=== PATIENT | male | born 1945 | race Caucasian/White ===

== ENCOUNTER 2018-05-05 13:30 | Outpatient (CLI) | payer MEDICARE, OTHER, SELFPAY | END 2018-05-05 13:31 | PROVIDERS: PCP Nurse Practitioner Family; Visit Provider Student in an Organized Health Care Education/Training Program | DX: Z47.1 Aftercare following joint replacement surgery (principal); Z96.641 Presence of right artificial hip joint; M16.12 Unilateral primary osteoarthritis, left hip | CPT/HCPCS: 99213 ==

== ENCOUNTER 2018-05-23 15:29 | Outpatient (REF) | payer MEDICARE, OTHER, SELFPAY ==
--- NOTE | 2018-05-23 15:00 | SKI_PTH ---
PATIENT: John Parson LOC: [facility] U#:[id number] AGE/SX: 72/M ROOM: RE05/23/[address]: Pattie June : 1945 BED: DIS: 05/23/2018 SPEC #: [id number] RECD: 05/26/18 12:31 STATUS: SOSA REEmanuel #: [id number] LARY: 05/23/18 15:[address]: Pattie June DEPT: Surgical Specimen RECD BY: Katelyn Ball ENTERED: 05/26/18 12:32 SP TYPE: DANETTE FAIR DR: Kimberly Ayala Tissues: 1 - SKIN BIOPSY(SHAVE/PUNCH) Procedures: SKIN LEVEL 4 Comments: [id number]
== END 2018-05-23 15:49 ==
LOC: NCHCN 15:29
PROVIDERS: PCP Nurse Practitioner Family; Visit Provider Family Medicine
DX: D18.01 Hemangioma of skin and subcutaneous tissue (principal)
CPT/HCPCS: 88305

== ENCOUNTER 2018-11-06 00:57 | Outpatient (CLI) | payer MEDICARE, OTHER, SELFPAY ==
--- NOTE | 2018-11-06 10:28 | DI.RAD_ITS ---
SYMPTOMS/DIAGNOSIS: PRIMARY OA LT HIP, M16.12 LEFT HIP INJECTION: Fluoroscopy Time: 10.9 sec, 1.28 mGy Fluoroscopy was provided for Dr. Hitchcock while performing a left hip injection. Please see procedure note for details.
[2018-11-06] MEDS: Bupivacaine 0.5% Pres-Free 10 ML VIAL 5 ML IJ (14:38)
[2018-11-06] MEDS: methylPREDNISolone ACETATE 80 MG/ML VIAL IM (14:38)
--- NOTE | 2018-11-06 17:40 | W.PROCNOTE ---
Date of service: 11/06/18 Time of Service: 17:41 Procedure Note Date of procedure: 11/06/18 Procedure: Left Hip Injection with Fluoroscopic Guidance Surgeon/Proceduralist/Physician: Jaime Hitchcock Procedure Diagnosis: Left Hip Osteoarthritis Procedure Indications: has had persistent pain of the LEFT hip and groin. Noninvasive measures have been tried. To serve as both diagnostic and therapeutic, an injection under fluoroscopy was recommended. I had discussed the risks of the procedure and the patient elected to proceed. Procedure Description: was greeted in the flouroscopy room. The correct side was identified and the consent was reviewed with the patient and signed. The patient was then placed in the supine position on the fluoroscopy table. The LEFT hip was then prepped with Chloraprep. The anterolateral injection starting point was identiifed by bony landmarks and fluoroscopy. The skin and soft tissue in the tract of the injection was anesthetized with 1% Lidocaine. A spinal needle was then inserted deep into the hip joint at the level of the lateral femoral neck under fluoroscopic guidance. A small amount of Omnipaque solution was injected to confirm intraarticular placement. Once confirmed, the hip was injected with 6cc of 0.5% Bupivicaine and 80mg of Depo-Medrol. A bandaid was placed on the injection site. The patient tolerated the procedure well and noted improvement in pre-injection pain.
== END 2018-11-06 01:17 ==
PROVIDERS: PCP Family Medicine; Visit Provider Student in an Organized Health Care Education/Training Program
DX: M25.552 Pain in left hip (principal); M16.12 Unilateral primary osteoarthritis, left hip
CPT/HCPCS: 20610; 77002; J1040

== ENCOUNTER 2019-01-26 13:57 | Outpatient (CLI) | payer MEDICARE, OTHER, SELFPAY ==
--- NOTE | 2019-01-26 13:55 | DI.RAD_ITS ---
SYMPTOM/DIAGNOSIS: LT HIP PAIN LEFT HIP AND PELVIS: Comparison is made with 05/03/16. There has been no change in the right total hip prosthesis. There has been interval worsening of the degenerative changes of the left hip, now severe. There is severe superior hip joint space loss as well as periarticular sclerosis and subchondral cyst formation. The SI joints are unremarkable. IMPRESSION: Severe degenerative changes of the left hip.
== END 2019-01-26 14:17 ==
PROVIDERS: PCP Family Medicine; Referring Provider Family Medicine; Visit Provider Student in an Organized Health Care Education/Training Program
DX: M25.552 Pain in left hip (principal); M16.12 Unilateral primary osteoarthritis, left hip; Z96.641 Presence of right artificial hip joint; Z98.890 Other specified postprocedural states
CPT/HCPCS: 99213; 73502

== ENCOUNTER 2019-03-19 13:02 | Outpatient (CLI) | payer MEDICARE, OTHER, SELFPAY ==
[2019-03-19 14:34] LABS: HCT 39.5 % (40.0-50.0); HGB 13.9 g/dL (13.5-17.5); Mean Corp. HGB Concentration 35.2 g/dL (32.0-36.0); Mean Corpuscular Hemoglobin 33.4 pg (27.0-33.0); Mean Platelet Volume 8.5 fL (8.0-11.0); Platelet Count 329 x1000/uL (130-400); RBC 4.16 m/cumm (4.50-6.00); RBC Distribution Width 11.1 % (11.8-14.1); White Blood Cell Count 5.93 k/cumm (4.4-10.8)
[2019-03-19 16:17] LABS: BUN 8 mg/dL (7-18); CREATININE 0.78 mg/dL (0.70-1.30); Chloride 92 mmol/L (98-107); Glucose 94 mg/dL (70-100); Potassium 4.4 mmol/L (3.5-5.1); Sodium 130 mmol/L (136-145)
--- NOTE | 2019-03-20 15:42 | HPE_ITS ---
Date of service: 03/19/19 Assessment and Plan (1) Primary osteoarthritis of left hip: Current visit: No Status: Acute Left total hip replacement. Details of surgery were discussed with patient as well as risks and pertinent anatomy. All questions were answered to patients satisfaction. History of Present Illness Chief Complaint: Left hip pain. Narrative: comes in today for a pre-op history and physical for a left total hip replacement. He has been dealing with left hip pain for a couple of years now, but it has gotten worse over the last 6 months to a year. He has noticed that he has decreased his activities to the point of not doing firewood or as much snow shoveling anymore because of hip pain. He has pain with ambulation as well, especially if iit is prolonged. He also has difficulty putting on shoes and socks. X-ray reveals severe arthritis in his left hip with a complete loss of joint space and bone spurs throughout the acetabulum and femoral neck. He has had an injection which he thinks helped, but it coincided with a period of rest for him as well. At this point, Dr. Hitchcock offers a left total hip replacement, and agrees and is anxious to proceed. Pertinent Surgical Information relates a persistant history of some minor hyponatremia. He also casually mentions a history of hepititis C as a young person, but he does not have any of the risk factors and this has not come up in his past medical history. Patient denies history of hypertension, CVA, AR, angina, asthma, COPD, renal or liver disorders, hepatitis, bleeding disorders, diabetes, immune or thyroid disorders. No complications from anesthesia. Review of Systems Constitutional Denies fever(s) ENT Denies dizziness and Denies sore throat Cardiovascular Denies chest pain, Denies palpitations and Denies dyspnea Respiratory Denies cough and Denies dyspnea Gastrointestinal Denies abdominal pain, Denies melena, Denies hematochezia, Denies diarrhea, Denies nausea and Denies vomiting Genitourinary Denies hematuria and Denies dysuria Neurologic Denies dizziness Endocrine Denies palpitations FOR[facility]LY [facility], [facility] Medical History (Updated 03/19/19 @ 13:32 by Marilu Carmen RN) Osteoarthritis (Chronic) Social History Smoking/Tobacco Use Status: Never Drug use: Never Do you feel safe in your relationship?: Yes Meds Home Medications Medication Instructions Recorded Confirmed Type cholecalciferol (vitamin D3) 4,000 unit PO DAILY 11/30/12 03/19/19 History [Vitamin D3] multivitamin 1 ea PO DAILY 11/30/12 03/19/19 History ascorbic acid (vitamin C) 1,000 mg PO DAILY tab.chew 05/04/15 03/19/19 History diphenhydramine HCl [Benadryl] 50 mg PO QHS PRN 03/19/19 03/19/19 History flaxseed oil 1,000 mg capsule 1,000 mg PO DAILY 03/19/19 03/19/19 History ibuprofen [Advil] 200 - 400 mg PO BID 03/19/19 03/19/19 History vitamin B complex 1 cap PO DAILY PRN 03/19/19 03/19/19 History Allergies Allergy/AdvReac Type Severity Reaction Status Date / Time Iodinated Contrast- Oral and Allergy Intermediate SOB, Unverified 03/19/19 13:20 IV Dye coughing, turned red Sulfa (Sulfonamide AdvReac Intermediate vomiting Unverified 03/19/19 11:56 Antibiotics) codeine AdvReac Mild headache Unverified 03/19/19 11:56 Exam [facility] Head: normocephalic and atraumatic General nose exam: no nasal discharge Throat: uvula midline and no uvular edema Other: soft palate rises symmetrically, no erythema Eyes Conjunctivae: conjunctivae normal Sclera: sclerae normal Pupils: PERRL Resp Effort & Inspection: normal respiratory effort Auscultation: clear to auscultation bilaterally and no wheezes Cardio Rate: regular rate Rhythm: regular rhythm Heart Sounds: S1 normal, S2 normal and no murmurs GI Palpation: soft, no hepatosplenomegaly and nontender Auscultation: normal bowel sounds Results Labs : 03/19/19 14:26 03/19/19 14:26 Laboratory Results - last 24 hr 03/19/19 03/19/19 14:26 14:26 Sodium 130 L Potassium 4.4 Chloride 92 L Carbon Dioxide 29.0 Anion Gap 9.0 BUN 8 Creatinine 0.78 Estimated GFR/1.73 m2 >= 60.00 Glucose 94 Calcium 9.0 Patient ABO/Rh B Positive Antibody Screen Negative
== END 2019-03-19 13:22 ==
PROVIDERS: PCP Family Medicine; Visit Provider Student in an Organized Health Care Education/Training Program
DX: M25.552 Pain in left hip (principal); M16.12 Unilateral primary osteoarthritis, left hip; Z01.812 Encounter for preprocedural laboratory examination; Z01.818 Encounter for other preprocedural examination
CPT/HCPCS: 36415; 80048; 85027; 86850; 86900; 86901; NC

== ENCOUNTER 2019-03-24 06:03 | Inpatient (IN) | payer MEDICARE, OTHER, SELFPAY ==
[2019-03-24] VITALS (21 sets, daily range): BP systolic 58–164; BP diastolic 39–84; PULSE 55–74; RESP 10–16; TEMP 35.6–36.9; O2SAT 82–100
[2019-03-24] MEDS: Celecoxib 200 MG CAP 400 MG PO (06:50)
[2019-03-24] MEDS: oxyCODONE-CR 10 MG TABCR PO (06:50)
[2019-03-24] MEDS: Acetaminophen 500 MG TAB 1000 MG PO ×3 (06:50→19:23)
[2019-03-24] MEDS: Lactated Ringers 1,000 ML 80 ML IV ×3 (06:51→21:07)
--- NOTE | 2019-03-24 07:00 | DI.RAD_ITS ---
SYMPTOM/DIAGNOSIS: OA LT HIP LEFT HIP IN OR: Fluoroscopy Time: 34.1seconds, 4.08mgy Fluoroscopy was utilized by Dr. Hitchcock during the placement of a left total hip replacement. Please refer to the procedure report for complete details.
[2019-03-24] MEDS: ceFAZolin 2 GM/50 ML BAG IVPB (07:30)
[2019-03-24] MEDS: Normal Saline 20 ML VIAL (09:23)
[2019-03-24] MEDS: Bupivacaine 0.25% Pres-Free 30 ML VIAL (09:23)
[2019-03-24] MEDS: Ketorolac 30 MG/ML VIAL (09:23)
--- NOTE | 2019-03-24 10:14 | DI.RAD_ITS ---
SYMPTOMS/DIAGNOSIS: S/P LT MELISSA AP PELVIS: Comparison 01/26/19. The patient is now status post left total hip replacement. The orthopedic hardware is in good position. The bones are intact. Post surgical changes are seen in the soft tissues of the left hip There are again seen post surgical changes of a prior right hip prosthesis which appears stable. The sacroiliac joints and symphysis pubis are intact. IMPRESSION: Status post left THR.
--- NOTE | 2019-03-24 11:14 | NUR.NOTE ---
Pt arrives to room 216 at 1029 via stretcher from PACU. Pt moved from stretcher to bed via hover mat. Pt has mepilex dressing to left hip.
--- NOTE | 2019-03-24 11:57 | IN_ITS ---
Date of service: 03/24/19 Time of Service: 11:13 PT Notes Inpatient Physical Therapy Evaluation Date: 03/24/2019 Referring Doctor: Jaime Hitchcock MD PT Orders: PT CONSULT: Status post left MELISSA. Likely same day home discharge. Precautions: Fall. Standard. WBAT left LE. Patient Profile/Admitting Diagnosis: Patient is a 73-year-old male with left hip osteoarthritis status post left anterior MELISSA on postoperative day 0. PMHX: Medical History (Updated 03/19/19 @ 13:32 by Marilu Carmen RN) Osteoarthritis (Chronic) Social History/Home Situation: Patient lives with in a 1 floor house with 2 steps to enter without rails. Patient is independent with all aspects of ADLs without the need for an assistive ambulatory device nor adaptive equipment although recently, he states that he has been using his straight cane because of pain complaints on the left lower extremity related to arthritis. Current Functional Limitations: Need for assistive device and assistance for all transfer and ambulation task performance Equipment Owned/DME: [facility] [place] Subjective: Patient agreeable to a PT consult and treatment today. He reports being woozy upon sitting at the edge of bed. He reported being lightheaded after taking 4 steps using FWW. He did report being mildly achy on the medial and lateral aspect of his L thigh that subsided with rest. Objective: General Observation: Patient seen resting in bed. IV in R UE. Antiembolic pump to bilateral legs. TEDS on bilateral legs. Mepilex Ag over surgical incision. Patient looked a pale upon sitting back down in bed. Mental Status: Alert and oriented x4 Pain: Reports being achy lateral and medial aspect of the left hip Vital Signs: Patient tested negative for orthostatic hypotension with THEORETICAL PHYSICIST testing whle PT was assiting with positional change. However patient went down to 58/39 mmHg with ambulation atcivity and went back up to 97/57 mmHg once back in supine. Oxygen saturation stayed above 90% throughout session. ROM: Right Upper Extremity: Shoulder Flexion WFL. Shoulder abduction WFL. Elbow flexion WFL. Wrist flexion WFL. Functional opening and closing of hand WFL. Left Upper Extremity: Shoulder Flexion WFL. Shoulder abduction WFL. Elbow flexion WFL. Wrist flexion WFL. Functional opening and closing of hand WFL. Right Lower Extremity: Hip flexion WFL. Hip abduction WFL. Knee flexion WFL. Ankle dorsiflexion WFL. Ankle plantarflexion WFL. Left Lower Extremity: Hip flexion allows about 30 degrees beyond 90 degrees while sitting at edge of bed. Hip abduction WFL. Knee flexion WFL. Knee extension WFL. Ankle dorsiflexion WFL. Ankle plantarflexion WFL. Strength: Right Upper Extremity: Shoulder flexors 5/5. Shoulder abductors 5/5. Elbow flexors 5/5. Elbow extensors 5/5. Composition Teacher strong. Left Upper Extremity: Shoulder flexors 5/5. Shoulder abductors 5/5. Elbow flexors 5/5. Elbow extensors 5/5. Composition Teacher strong. Right Lower Extremity: Hip flexors 5/5. Hip abductors 5/5. Knee flexors 5/5. Knee extensors 5/5. Ankle dorsiflexors 5/5. Ankle plantarflexors 5/5. Left Lower Extremity:Hip flexors 3-/5. Hip abductors 4-/5. Knee flexors 4/5. Knee extensors 4-/5. Ankle dorsiflexors 4/5. Ankle plantarflexors 4/5. Sensation: Intact as to pain and pressure on bilateral lower extremities. Bed Mobility/Transfers: Rolling SBA Supine to sit SBA Sit to supine SBA Sit to stand SBA Stand to sit SBA Bed to chair SBA Chair to bed SBA Gait: Patient was able to tolerate level surface ambulation of up to 4 feet using FWW before reporting being lightheaded. Patient took quite a while before he was able to back up and sit onto edge of bed. Blood pressure was 58/39 mmHg. PAtient managed to scot sideways before he assumed supine position back in bed. Balance: Static Sitting: Good Dynamic Sitting: Good Static Standing: Fair Dynamic Standing: Fair Special Tests: Mobility Limitations Standardized Measure [facility] AM-PAC 6 clicks Basic Mobility Inpatient Short Form: Raw Score: 18 CMS Score: 47% deficit Informed Consent/Education: Patient instructed in purpose of PT consult and plan of care. Assessment: Patient is a 73-year-old male with left hip status post left anterior MELISSA on postoperative day 0. Patient presents with clinical signs and symptoms consistent with current/admitting diagnoses that have resulted to mobility limitations, gait instability, generalized weakness, and impairment of motor control as demonstrated by the following impairment level findings: 1. Decreased strength to left hip major muscle groups 2. Impaired standing balance 3. Impaired activity tolerance 4. Limitation of joint range of motion in left hip Impairments are contributing to the following functional limitations: 1. Dependent bed mobility skills 2. Increased dependence with transfers 3. Inability to safely ambulate without assistive device and physical assistance 4. Increase completion time for mobility ADL performance 5. Increased fall risk 6. Inability to negotiate steps alone safely Patient is assessed as a [id number] complexity based on the following: History: Patient is a 73-year-old cognitively intact male with independent premorbid level with left hip status post left anterior MELISSA on postoperative day 0 Examination: Demonstrable impairment in strength, balance, and range of motion with underlying impairments and functional limitations as documented above Presentation:Evolving Decision Makin moderate complexity Goals: Goals X1 week 1. Supine-Sit independent 2. Sit-Supine independent 3. Sit-Stand independent 4. Stand-Sit independent 5. Bed-Chair independent 6. Chair-Bed independent 7. Independent gait on level surface with use of least restrictive device for at least 300 feet without report of pain nor dyspnea 8. Independent stair negotiation while holding onto bilateral rails for at least 10 steps without report of pain nor dyspnea 9. Independent with home exercise program 10. Good static and dynamic standing balance/tolerance Plan of Care/Treatment Plan: 1-2x/day, 7 days/week x 1 week. Plan of care has been reviewed with the [employer] providing the service under Physical Therapy direction. Initiate Physical Therapy intervention for strengthening, bed mobility, transfers, gait, stairs, balance training, use of assistive device. DISCHARGE RECOMMENDATIONS: May benefit from skilled physical therapy services according to orthopedic surgeon timeline recommendations. Patient will be educated and trained on home exercise program per [facility] exercise protocol in preparation for outpatient physical therapy services. TREATMENT CODE/TIME: 38402 x39 minutes beginning at 11:13 AM. Thank you very much for this referral. Alysia Hickman PT, DPT, CLT [facility]
[2019-03-24] MEDS: Ibuprofen 600 MG TAB PO ×2 (13:41→19:22)
--- NOTE | 2019-03-24 14:03 | NUR.NOTE ---
Addendum entered by Brandee Pedersen 03/24/19 14:33: Pt has a Mepilex AG over his Left hip surgical incision. Dressing is clean, dry, and intact. Pt instructed to leave in place for 7 days. Original Note: Nursing Note: Pt arrived to room 216 from PACU at 1039 on a stretcher. Pt transfered from stretcher to bed via hover mat. Pt A&O x3. LS clear. HR 64, regular, s1 s2 audible, pedal pulses palpable and equal. Pt has sensation in lower extremities described as kind of numb. Pt is able to move both the operative and non operative toes and leg. Pt is excited to work with PT and hopes to be discharged today. Pt has LR running into the left hand at 80 mL/hr.
--- NOTE | 2019-03-24 15:31 | PT.INTREAT ---
Date of service: 03/24/19 Time of Service: 15:31 PT Notes Inpatient Physical Therapy Treatment Note [facility] Date: 03/24/2019 PRECAUTIONS: Fall, WBAT L SUBJECTIVE: states that he is feeling antsy, he wants to get out of bed and get up and move. He reports that he is feeling good this afternoon, not lightheaded. Patient asking about switching to single-point cane versus FWW, patient instructed to discuss use of less restrictive device with Dr. Hitchcock. OBJECTIVE: PAIN: No complaints of pain BED MOBILITY/TRANSFERS Supine-sit: S with HOB at 30 degrees Sit-supine: S with HOB flat Sit-stand: S Stand-sit: S GAIT Assistive Device: FWW Weight bearing: WBAT L Assist: SBA Distance: 250' Deviation: Step through gait pattern utilized, cueing for increased knee flexion for increased step-height VITALS: Orthostatic vitals taken, see nursing note for specifics THEREX: Patient completed a lower extremity strengthening and stabilization program, in a supine position, as per flow sheet. Patient denied need for cryo at end of session. STAIRS: Up/down 3x4 and 2x6 using B rails and a step-over pattern with supervision ASSESSMENT: Patient tolerated session well, without complaint. Patient was able to tolerate a progression in gait distance with FWW support and SBA, utilizing step-through gait pattern with minimal cueing for increased knee flexion with gait. PLAN: Continue with PT's POC TREATMENT CODE/TIME: 45 minutes; 83931 x2, [id number]
--- NOTE | 2019-03-24 19:19 | NUR.NOTE ---
Nursing Note: Pt ambulated in hallways with standby assistance and rolling walker. Had c/o slight ALBARRAN pain prior to ambulation and admitted to some lightheadedness when standing at bedside. Ambulation went well, pt denies dizzyness, SOB, etc. Upon return to room, pt requested to sit up in the chair. Ten minutes later, pt experienced a syncopal episode and was transported back to bed by RNs. Pt came to once back in bed though remained diaphoretic and pale in color. VS: 36.4 T, 116/66 BP, 68 P, 20 R, 100% RA. CCRN Elizabeth aware. RN will continue to monitor.
[2019-03-24] MEDS: Aspirin E.C. 81 MG TABEC PO (19:23)
[2019-03-24 19:25] LABS: HGB 9.2 g/dL (13.5-17.5)
[2019-03-24] MEDS: Lactated Ringers 1,000 ML 1000 ML IV (19:55)
[2019-03-24 20:31] LABS: Troponin I < 0.05 ng/mL (0.00-0.06)
[2019-03-24 21:04] LABS: Anion Gap 7.1 mmol/L (3-11); BUN 10 mg/dL (7-18); CO2 24.9 mmol/L (21.0-32.0); CREATININE 0.76 mg/dL (0.70-1.30); Calcium 7.9 mg/dL (8.5-10.1); Chloride 88 mmol/L (98-107); Glucose 126 mg/dL (70-100); Potassium 4.5 mmol/L (3.5-5.1)
[2019-03-24 21:07] LABS: Sodium 120 mmol/L (136-145)
--- NOTE | 2019-03-24 21:32 | ROE_ITS ---
Date of service: 03/24/19 Time of Service: 10:32 Operative Note DATE OF PROCEDURE: 03/24/19 PRE-OP DIAGNOSIS: Left Hip Osteoarthritis POST-OP DIAGNOSIS: same PROCEDURE: Left Anterior Total Hip Arthroplasty SURGEON: Jaime Hitchcock CUPOLA TENDER: Therese Hitchcock ANESTHESIA: GETA and spinal ESTIMATED BLOOD LOSS: 700 PATHOLOGY: none sent COMPLICATIONS: None Patient was transported to: PACU Patient's condition: stable Implants: 1. Depuy [place] Acetabular Component, 56 mm 2. Depuy Acetabular Liner, 56 x 36 mm 3. Depuy Corail [Standard Collared] Femoral Stem, Size 12 4. Depuy [Altrx Ceramic Femoral Head], Size 36+5 mm Indications: I have seen in clinic for symptoms of hip arthritis, confirmed with radiographic findings. has exhausted nonoperative methods and was having significant limitations in daily function and desired better function and less pain. I discussed the technical details of a hip replacement. I explained the risks of the procedure to include, but not limited to, bleeding, infection, pain, stiffness, fracture, damage to nerves and vessels, damage to muscles and tendons, loosening, instability, leg length inequality, need for repeat procedure, blood clot and cardiopulmonary demise. Despite these risks, he elected to proceed. Findings: There was significant signs of arthritis throughout the hip. There was a significant for osteophyte as well as lateral neck osteophytes. The lateral acetabulum also had an area of calcified labrum and a large osteophyte. Complete loss of cartilage over the superior femoral head. His bone was of good quality and the diaphyseal inner diameter narrowed substantially require the use of a flexible reamer to complete the surgery. Procedure Description: was greeted in the preoperative holding area where the correct side was identified and marked. The consent was reviewed with the patient and signed. The history and physical was updated. All questions were answered. was taken back to the operating room. A spinal anesthestic was then admi nistered. The patient was placed into the supine position on the operating room table. The patient was then positioned onto the ARCH table. Both feet were wrapped with [place] cotton wrap along with Coban. The feet were placed in specialized boots for the ARCH table, well seated within the boot and secured. SCDs were applied. The patient was then slid down onto a peroneal post and the nonoperative leg was secured in a leg ram attached to the table. The operative side was placed into the ARCH table attachment and bed height and positioning was secured. A preoperative AP pelvis was obtained to serve as a reference for determining leg lengths. Prophylactic antibiotics in the form of cefazolin were administered. 1g of Tranxemic Acid was given intravenously within 30 minutes of incision. The left leg was then prepped with Chloraprep and draped in a standard fashion with a large shower-curtain type drape with Iodine impregnated skin protection. A timeout to confirm correct identity, side and site, procedure, allergies, anesthesia, and medical concerns was performed. An obliquely oriented incision was made starting lateral to the ASIS and running distal over the Tensor Fascia Aleah (TFL) muscle belly toward the fibular head, approximately 10cm. The skin and soft tissue was dissected sharply, through Norah?s fascia, and to the fascia of the TFL. With the fascia and superior border of the IT band identified, the fascia was incised with a new knife just above any perforators from the IT band. The TFL muscle belly was bluntly dissected away from the fascia and moved laterally. The fat between TFL and rectus was identified to ensure the dissection was not within the TFL. Blunt dissection created space between abductors and the capsule and retractor was placed over the lateral femoral neck. The fibers of the rectus femoris tendon were identified and these were freed from the anterior capsule. A second cobra retractor was placed around the medial femoral neck. The TFL was further retracted laterally to show the deep fascia. Careful dissection through this layer identified three main crossing vessels of the lateral femoral circumflex. These were cauterized in multiple locations and then cut without any noticeable bleeding. The TFL was further released bluntly from the deep fascia to expose anterior hip capsule and fat the Charli orthopaedic retractor was then placed beneath the TFL and against sartorius and medial soft tissues to protect and retract the soft tissues. A T-capsulotomy was then performed starting at the superior lateral acetabulum and moving distally to the intertrochanteric ridge. These capsular flaps were tagged with a No. 1 Ethibond and elevated from within. The capsular flaps were released to the shoulder of the lateral neck and to the lesser trochanter to give excellent visualization of the proximal femur. A neck osteotomy was performed using an oscillating saw based on preoperative templates. This cut started in the shoulder and of the lateral neck and exited medially. The saw was at all times directed medially to avoid injury to the greater trochanter. 6cm of traction was applied to the leg and the osteotomy opened. The femoral head was removed with a corkscrew, making sure to protect the TFL on its exit. This was measured on the back table to determing the starting reamer size. Portions of the rectus obscuring visualization were minimally elevated off the superior acetabulum. An anterior retractor was placed over the anterior wall between capsule and labrum. A posterior retractor was placed similarly. This provided excellent visualization. The contents of the cotyloid fossa were removed with electrocautery and the labrum was removed with a knife. There was a notable floor osteophyte. There was significant chondromalacia of the superior acetabulum. Acetabular reaming began with a 51 mm reamer. This first reaming was directed anterior to posterior and medial to get down to the true floor. This was inspected and reamed until the true floor was reached. I then reamed sequentially up to a 55 mm reamer where good fit was obtained. The larger reamers were oriented based on anatomical reference of the anterior and lateral quintero to ensure proper abduction and anteversion. Positioning and size was confirmed with the fluoroscopy. A 56 mm Depuy [place] acetabular component was selected. The acetabulum was reamed around the periphery with the selected acetabular size to prevent a rim fit. The deep tissues were irrigated. The acetabular component was then impacted in a position of about 40-45 degrees of abduction and 15-20 degrees of anteversion, using the patient?s anatomy as the ultimate landmark. Fluoroscopy was used to confirm this. There was excellent coordinator volunteer services of the acetabular component and the inserting handle was removed. The acetabular liner, Depuy 56 x 36 mm polyethylene liner, was inserted and lined up with the tines of the acetabular component. There was no soft tissue interposition. The liner was then impacted into position and confirmed to be well-seated. A portion of the genaro-articular cocktail was then injected around the acetabulum into the capsule and periosteum. This cocktail consisted of 50cc of 0.25% Bupivicaine and 20cc of Exparel, expanded to a total of 120cc. Traction was released from the femur. The leg was rotated to 120 degrees. Any remaining medial capsule was released until the lesser trochanter was easily palpable. A Cage retractor was placed medially. The lateral capsule was further released into the shoulder to allow access to the greater trochanter. A Cage retractor was placed over the greater trochanter which allowed the trochanter to flip in front of the capsule for excellent exposure. The leg was brought down into maximal extension and 20 degrees of adduction while ensuring there was no impingement on the acetabulum. Any remnant capsule within the trochanter was released. Piriformis and obturator externis were identified and protected. There was excellent access to the proximal femur. The lateral neck remnant was removed with a rongeur. A blunt canal probe was used to identify the canal and trajectory for later broaching. A box osteotome initiated the broach course. A small curved rasp and a curved curette were used to work laterally. Broaching then began with a size 8 [place] broach. This was inserted manually around the trochanter and into the canal before mallet blows. The broach was seated to the neck cut level based on the neck cut and the preoperative template. Sequential broaching was continued until a tight fit was obtained with good rotational control of the femur. The size 11 broach was able to be seated with little difficulty. However, the size 12 broach stayed quite a bit more proud. With the space around the proximal portion, this was likely due to narrowing of the inner diameter of the diaphysis. Therefore, I opened the flexible reamer system and reamed the inner portion of his femur to a size 12.5 mm. This then allowed the size 12 broach to seat all the way to the neck cut level. A trial standard neck was inserted along with a +5 trial head. The leg was brought out of extension and adduction and then reduced with traction and internal rotation. The leg was stable anteriorly in a position of 30 degrees of extension and 90 degrees of external rotation. Fluoroscopy was used to ensure there was no fracture and the stem was seated well. Leg lengths were checked with an AP pelvis and pelvic reference points. Once content with the desired offset and leg lengths, the leg was brought back into extension, external rotation and adduction. The periosteum and surrounding tissue was injected with remaining portion of the genaro-articular cocktail. The proximal femur was irrigated as well as the deep tissues. The Chip Estimateuy [place] standard collared stem, size 12, was then manually inserted into the proximal femur making sure to control rotation. It was then malleted into position with light blows, giving breaks to allow bone expansion and decrease risk of fracture. The selected Depuy Altrx Ceramic Head, size 36+5 mm, was then placed onto the clean and dry trunnion and secured with impaction onto the tapered fit. The leg was brought back out of extension and adduction and reduced with traction and internal rotation. Stability was confirmed with no shuck at 90 degrees of external rotation and 30 degrees of extension. No impingement through range of motion arc. Final x-ray images were obtained with fluoroscopy to confirm adequate positioning and no intraoperative fracture. The deep tissues were thoroughly irrigated with a pulse lavage. The second dose of TXA 1g was administered intravenously. The capsule was then reapproximated with the previously placed Ethibond sutures. The TFL fascia was finally closed with a No. 2 Stratafix, barbed suture. Deep tissues were then reapproximated with 0 Vicryl and a running 2-0 Vicryl. The skin was closed with a running 4-0 Monocryl in a subcuticular fashion. This was reinforced with skin glue. A Mepilex silver dressing was applied. At the end of the case, all counts were correct. was transferred to the hospital bed without difficulty and suffering no apparent complication. has a good prognosis. Physical therapy will start today and without restrictions, weight-bearing as tolerated. Aspirin 81mg BID will be used for DVT prophylaxis.
[2019-03-24] MEDS: Normal Saline 1,000 ML 80 ML IV (21:38)
[2019-03-25] VITALS (12 sets, daily range): BP systolic 90–118; BP diastolic 54–70; PULSE 64–90; RESP 14–18; TEMP 36.1–36.9; O2SAT 95–99
[2019-03-25 00:19] LABS: Troponin I < 0.05 ng/mL (0.00-0.06)
[2019-03-25] MEDS: diphenhydrAMINE 25 MG CAP 50 MG PO ×2 (00:49→23:35)
[2019-03-25] MEDS: Ibuprofen 600 MG TAB PO ×3 (03:08→20:02)
[2019-03-25] MEDS: Normal Saline Flush 10 ML SYR IV ×2 (05:28→08:28)
[2019-03-25 07:08] LABS: HCT 24.2 % (40.0-50.0); HGB 8.4 g/dL (13.5-17.5); Mean Corp. HGB Concentration 34.7 g/dL (32.0-36.0); Mean Corpuscular Hemoglobin 32.6 pg (27.0-33.0); Mean Corpuscular Volume 93.8 fL (80-95); Mean Platelet Volume 8.7 fL (8.0-11.0); Platelet Count 253 x1000/uL (130-400); RBC 2.58 m/cumm (4.50-6.00); RBC Distribution Width 10.5 % (11.8-14.1); White Blood Cell Count 6.12 k/cumm (4.4-10.8)
[2019-03-25 07:18] LABS: Anion Gap 7.6 mmol/L (3-11); BUN 9 mg/dL (7-18); CO2 26.4 mmol/L (21.0-32.0); CREATININE 0.69 mg/dL (0.70-1.30); Calcium 7.9 mg/dL (8.5-10.1); Chloride 92 mmol/L (98-107); Glucose 96 mg/dL (70-100); Potassium 3.9 mmol/L (3.5-5.1); Sodium 126 mmol/L (136-145)
[2019-03-25] MEDS: Ascorbic Acid 500 MG TAB 1000 MG PO (08:22)
[2019-03-25] MEDS: Cholecalciferol (Vitamin D3) 1,000 UNIT TAB 4000 UNITS PO (08:24)
[2019-03-25] MEDS: Aspirin E.C. 81 MG TABEC PO ×2 (08:25→20:03)
[2019-03-25] MEDS: Pantoprazole 40 MG TABCR PO (08:25)
[2019-03-25] MEDS: Multivitamin TAB 1 TAB PO (08:26)
[2019-03-25] MEDS: Acetaminophen 500 MG TAB 1000 MG PO ×3 (08:27→20:03)
[2019-03-25 12:35] LABS: Anion Gap 6.4 mmol/L (3-11); BUN 11 mg/dL (7-18); CO2 25.6 mmol/L (21.0-32.0); CREATININE 0.81 mg/dL (0.70-1.30); Calcium 7.9 mg/dL (8.5-10.1); Chloride 95 mmol/L (98-107); Glucose 94 mg/dL (70-100); Potassium 4.2 mmol/L (3.5-5.1); Sodium 127 mmol/L (136-145)
--- NOTE | 2019-03-25 12:41 | PT.INTREAT ---
Date of service: 03/25/19 Time of Service: 12:41 PT Notes Inpatient Physical Therapy Treatment Note [facility] Date: 03/25/2019 PRECAUTIONS: Fall, WBAT L SUBJECTIVE: states that he has been laying in bed too long, he wants to get up and move. He reports that he is feeling good this morning. He reports experiencing a syncopal episode last night after taking a walk with nsg. OBJECTIVE: PAIN: Patient c/o L LE discomfort with ther ex completion BED MOBILITY/TRANSFERS Supine-sit: S with HOB flat in a.m.; I in p.m. Sit-supine: I in p.m. Sit-stand: S Stand-sit: S GAIT Assistive Device: FWW Weight bearing: WBAT L Assist: SBA Distance: 40' in a.m.; 75' in p.m. Deviation: Step through gait pattern utilized, c/o minimal lightheadedness in both a.m. and p.m.; c/o sweatiness in p.m. VITALS: Orthostatic BP: 122/63 in supine, 115/63 in seated, 97/59 in standing; 110/62 in seated post gait training in a.m.; 94/54 in supine, 104/62 in seated, 90/63 in standing in p.m. THEREX: Patient completed a lower extremity strengthening and stabilization program, in a seated position in a.m. and a supine position in p.m., as per flow sheet. Patient denied need for cryo at end of session. ASSESSMENT: Patient tolerated session well, with minimal complaint of lightheadedness with transfers and gait training, as well as with c/o L LE discomfort with ther ex completion. PLAN: Continue with PT's POC TREATMENT CODE/TIME: Session 1: 30 minutes; [id number], [id number] Session 2: 30 minutes; [id number], [id number]
--- NOTE | 2019-03-25 14:44 | INITIAL_ITS ---
- If Service Date Differs Date of service: 03/25/19 Time of Service: 14:45 Care Management Initial Assess REASON FOR HOSPITALIZATION:: Primary osteoarthritis of left hip PAST MEDICAL HISTORY/PAST SURGICAL HISTORY:: Past medical history: enlargeed prostate. history of hepatitis. osteoarthritis. Past surgical history: Right total hip. repair of inguinal hernia. TURP PREVIOUS FUNCTIONAL STATUS/SOCIAL/FAMILY SUPPORTS:: lives in a single family home in [place] with his significant other, Nimco Ledbetter. The home has one level living with only a couple of steps to enter. They have 2 cats that they are very fond of. 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 Nimco was a intensive care nurse and worked with psychiatric patients. is independent with all activities and self care. CURRENT FUNCTIONAL STATUS:: was sitting up in bed talking with Nimco when CM came to visit. He stated he was feeling better than earlier in the day when he became hypotensive. His sodium was also found to be low but he states this is not unusual for him. He tends to run around 128 to 130. does not anticipate the need for any services at home since Nimco will be with him and can provide any care he might need. Has patient been provided with information about the portal?: No Did the patient sign up for the portal?: Yes (previously) CODE STATUS:: Full Code INSURANCE COVERAGE / FINANCIAL ISSUES:: Medicare. [employer] CURRENT HOME/COMMUNITY SERVICES/EQUIPMENT:: none currently PRIMARY CARE PHYSICIAN:: Pattie June POTENTIAL DISCHARGE NEEDS:: Follow up with Dr. Hitchcock and discharge plan of care. PATIENT/FAMILY EDUCATION NEEDS:: Discharge plan, limitations, follow up pklan, [facility]. ANTICIPATED BARRIERS TO DISCHARGE:: none identified TRANSPORTATION:: via private vehicle with Nimco when ready PLAN:: will likely be discharged tomorrrow with no additional services in the home, provided his orthostasis and hyponatremia improve. Nimco will transport him via private vehicle. CM will continue to provide support to and Nimco and the discharge planning process.
--- NOTE | 2019-03-25 14:44 | CHAPLAIN ---
was resting in bed when I visited. His , Nimco Nixon, was with him. He said he's had some small complications since his surgery, but is feeling better and wanting to rest. is a nurse himself. Nimco is a member of the [employer]. He is hoping t got home tomorrow if he's feeling better. Nimco is a [employer], and may be as well.
--- NOTE | 2019-03-25 17:05 | W.PM.PROGNOT ---
Date of Service Date of service: 03/25/19 Time of Service: 07:48 Assessment and Plan (1) Primary osteoarthritis of left hip: Current visit: No Status: Acute is status post anterior left total hip arthroplasty. From the perspective seems to be doing with it has been able to mobilize physical therapy but stairs. He is currently noted by some lightheadedness at times. Is unclear if this is due to his hemoglobin or the hyponatremia. His vital signs have been stable during these episodes. He does have acute postop blood loss anemia with a drop from 13.9-84. I will continue to follow this. He should resume aspirin for the prophylaxis. He will continue mobilize physical therapy. Likely discharge tomorrow. (2) Hyponatremia: Current visit: Yes Status: Acute does have known chronic hyponatremia. However, this more acute change is serious. He rebounded initially with some fluid restriction. This makes a likely etiology polydipsia with increased free water intake. Given the complexity, I will consult hospice to help manage his hyponatremia and make recommendations. We will continue to for strict him and obtain serial sodium levels. Subjective Patient reports: no new complaints Interval history since last seen: had an eventful night last night. He mobilize initially after his surgery but had an episode of hypotension. He was taken back to the bed and recovered quite quickly. He was able to rest and felt well. His Sexton catheter was removed. He mobilized last night with nursing. He did had a similar episode where he was placed back in bed. However, he took some time until he was completely with it and he looked more himself. At this time he is also complaining of some chest pain and not feeling well. Therefore troponins and EKG were ordered. These were all normal. His hemoglobin had dropped from 13.9-9.2. Given this history of some chronic hyponatremia, I also ordered a BMP which showed hyponatremia of 120. He was fluid restricted last night and tolerated this well. He did report drinking multiple large cups of water following his surgery yesterday. His sodium this morning rebounded to 126. He has no acute complaints have some soreness around the left hip. He has been able to mobilize. He does have some issues with feeling a little lightheaded when he sits upright although his vital signs remained stable. No headache. No change in vision. No chest pain or shortness of breath. Exam Narrative Exam Narrative: is resting in the bed. He is in no acute distress. He has no work of breathing. Evaluation of the left hip shows a a clean dry and intact dressing. He tolerates some internal ex rotation of the left leg. He has intact ankle dorsiflexion and plantarflexion. Palpable DP and PT pulse. Objective Objective Clinical Data: Abnormal lab results 03/24/19 03/24/19 03/25/19 Range/Units 19:15 20:00 06:45 RBC 2.58 L (4.50-6.00) m/cumm Hgb 9.2 L 8.4 L (13.5-17.5) g/dL Hct 26.0 L 24.2 L (40.0-50.0) % RDW 10.5 L (11.8-14.1) % Sodium 120 L* (136-145) mmol/L Chloride 88 L (98-107) mmol/L Creatinine (0.70-1.30) mg/dL Glucose 126 H (70-100) mg/dL Calcium 7.9 L (8.5-10.1) mg/dL 03/25/19 03/25/19 Range/Units 06:45 12:10 RBC (4.50-6.00) m/cumm Hgb (13.5-17.5) g/dL Hct (40.0-50.0) % RDW (11.8-14.1) % Sodium 126 L 127 L (136-145) mmol/L Chloride 92 L 95 L (98-107) mmol/L Creatinine 0.69 L (0.70-1.30) mg/dL Glucose (70-100) mg/dL Calcium 7.9 L 7.9 L (8.5-10.1) mg/dL Vital Signs Temperature 36.7 C 03/25/19 15:47 Temperature Source Tympanic 03/25/19 15:47 Pulse 73 03/25/19 16:54 Pulse Rhythm Regular 03/25/19 16:33 Respiratory Rate 18 03/25/19 15:47 Respiratory Effort 03/25/19 16:33 Respiratory Depth Normal 03/25/19 16:33 Respiratory Pattern Normal 03/25/19 16:33 Blood Pressure 114/69 03/25/19 16:54 Pulse Oximetry 98 03/25/19 15:47 Respiratory End-tidal CO2 33 03/24/19 10:20 Oxygen Delivery Method Room Air 03/25/19 15:47 Oxygen Flow Rate 0 03/25/19 15:47 Pain Level 0 03/25/19 15:47 Comment 03/25/19 16:54 Intake & Output 03/24/19 03/25/19 03/25/19 23:59 11:59 23:59 Intake Total 3659.333 / 4996.000 1905 150 6 Output Total 1050 / 1800 1300 / 2605 1305 / 2605 Balance 2609.333 / 3196.000 606 / -549 -1155 / -549 Intake: IV 1929.333 / 3026.000 1785 Oral 1729 / 1969 120 / 260 140 / 260 Output: Urine 1050 / 1100 1300 / 2605 1305 / 2605 Other: Urine Color Light Sunshine Yellow Pale Yellow Urine Appearance Clear Clear Clear Urine Odor Normal Normal None Comment Void post catheter d/c. Voiding Methods Urinal Urinal Urinal Laboratory Results WBC 6.12 k/cumm (4.4-10.8) 03/25/19 06:45 RBC 2.58 m/cumm (4.50-6.00) L 03/25/19 06:45 Hgb 8.4 g/dL (13.5-17.5) L 03/25/19 06:45 Hct 24.2 % (40.0-50.0) L 03/25/19 06:45 MCV 93.8 fL (80-95) 03/25/19 06:45 MCH 32.6 pg (27.0-33.0) 03/25/19 06:45 MCHC 34.7 g/dL (32.0-36.0) 03/25/19 06:45 RDW 10.5 % (11.8-14.1) L 03/25/19 06:45 Plt Count 253 x1000/uL (130-400) 03/25/19 06:45 MPV 8.7 fL (8.0-11.0) 03/25/19 06:45 Sodium 127 mmol/L (136-145) L 03/25/19 12:10 Potassium 4.2 mmol/L (3.5-5.1) 03/25/19 12:10 Chloride 95 mmol/L (98-107) L 03/25/19 12:10 Carbon Dioxide 25.6 mmol/L (21.0-32.0) 03/25/19 12:10 6.4 mmol/L (3-11) 03/25/19 12:10 BUN 11 mg/dL (7-18) 03/25/19 12:10 0.81 mg/dL (0.70-1.30) 03/25/19 12:10 >= 60.00 (mL/min/1.73m2) 03/25/19 12:10 Glucose 94 mg/dL (70-100) 03/25/19 12:10 Calcium 7.9 mg/dL (8.5-10.1) L 03/25/19 12:10 < 0.05 ng/mL (0.00-0.06) 03/24/19 23:50
[2019-03-25 18:30] LABS: HCT 23.3 % (40.0-50.0); HGB 8.2 g/dL (13.5-17.5)
[2019-03-25 18:38] LABS: Anion Gap 6.7 mmol/L (3-11); BUN 13 mg/dL (7-18); CO2 26.3 mmol/L (21.0-32.0); Calcium 8.2 mg/dL (8.5-10.1); Chloride 96 mmol/L (98-107); Glucose 103 mg/dL (70-100); Potassium 4.5 mmol/L (3.5-5.1); Sodium 129 mmol/L (136-145)
--- NOTE | 2019-03-25 19:12 | MCONE_ITS ---
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 I have relaxed the fluid restriction - we discussed that at home the patient will also have to monitor how much he drinks. The patient will speak to his PCP aboout getting his sodium checked the next time he feels dizzy. (2) Acute anemia: Current visit: Yes Status: Acute Post-op. Will check orthostatic VS. May require transfusion even if Hgb is above 8. (3) Near syncope: Current visit: Yes Status: Acute Agree this could be due to spinal anesthesia - however, will rule out orthostasis. (4) Primary osteoarthritis of left hip: Current visit: No Status: Acute s/p L total hip - defer to primary team History of Present Illness Chief Complaint: Low sodium Narrative: Mr Parson is a 73 year old male with PMHx of hyponatremia, arthritis, who underwent L total hip Arthroplasty on 03/24/[address] Hitchcock whom we were asked to see for hyponatremia. The patient states that he has always had low sodium and that he has previously seen [facility], but did not get a conclusive answer as to why he had it. He states he usually drinks more than 1/2 gallon of water per day. He states he has to make himself drink, because he never feels thirsty. Sometimes, when he does not drink water, he feels his eyes get dry, gets a headache and feels spinny headed and fuzzy. He always thought that that was because of dehydration and drinks more water. He has never actually had his sodium checked when he felt like that and thinks he'll talk to his PCP about it. He drank about a gallon of water yesterday after his surgery. His labs were checked because the patient had 2 near-syncopal episodes with hypotension post-op - his sodium was 120. The patient was placed on fluid restriction overnight, and by the morning his sodium came up to 126. Since then, it has come up to 129. The patient is asymptomatic at this time. Consults Consult date: 03/25/19 Requesting physician: Jaime Hitchcock Review of Systems Review of Systems 12 systems reviewed. Pertinent positives and negatives are as per [facility] Medical History (Updated 03/25/19 @ 19:23 by Martina Hugo MD) Enlarged prostate (Acute) History of hepatitis (Acute) Hyponatremia (Acute) Osteoarthritis (Chronic) Surgical History (Updated 03/25/19 @ 19:19 by Martina Hugo MD) H/O umbilical hernia repair (Acute) History of total right hip replacement (Inactive) Repair of inguinal hernia Transurethral prostatectomy Family History (Updated 03/25/19 @ 19:20 by Martina Hugo MD) Mother Hypertension Father Leukemia Social History (Updated 03/25/19 @ 19:21 by Martina Hugo MD) Smoking/Tobacco Use Status: Never Alcohol Intake: current Alcohol Intake frequency: a few times a week Drug use: Never Do you feel safe in your relationship?: Yes Exam Narrative Exam Narrative: General: very pleasant middle-aged male, quite a talker, laying comfortably in bed Neuro: A&Ox3, no focal deficits Psych: anxious/talkative Skin: intact HEENT: atraumatic, normocephalic, EOMI, MMM, no goiter or JVD\ Heart: RRR, no m/r/g Lungs: CTAB GI: abdomen is soft, nontender, nondistended Extremities: no e/c/c BLE's Results Last Vital Signs Temp 36.7 C 03/25/19 15:47 Pulse 73 03/25/19 16:54 Resp 18 03/25/19 15:47 BP 114/69 03/25/19 16:54 Pulse Ox 98 03/25/19 15:47 Labs : 03/25/19 18:15 03/25/19 18:15 Laboratory Results - last 24 hr 03/24/19 03/24/19 03/24/19 19:15 20:00 20:00 WBC RBC Hgb 9.2 L Hct 26.0 L MCV MCH MCHC RDW Plt Count MPV Sodium 120 L* Potassium 4.5 Chloride 88 L Carbon Dioxide 24.9 Anion Gap 7.1 BUN 10 Creatinine 0.76 Estimated GFR/1.73 m2 >= 60.00 Glucose 126 H Calcium 7.9 L Troponin I < 0.05 03/24/19 03/25/19 03/25/19 23:50 06:45 06:45 WBC 6.12 RBC 2.58 L Hgb 8.4 L Hct 24.2 L MCV 93.8 MCH 32.6 MCHC 34.7 RDW 10.5 L Plt Count 253 MPV 8.7 Sodium 126 L Potassium 3.9 Chloride 92 L Carbon Dioxide 26.4 Anion Gap 7.6 BUN 9 Creatinine 0.69 L Estimated GFR/1.73 m2 >= 60.00 Glucose 96 Calcium 7.9 L Troponin I < 0.05 03/25/19 03/25/19 03/25/19 12:10 18:15 18:15 WBC RBC Hgb 8.2 L Hct 23.3 L MCV MCH MCHC RDW Plt Count MPV Sodium 127 L 129 L Potassium 4.2 4.5 Chloride 95 L 96 L Carbon Dioxide 25.6 26.3 Anion Gap 6.4 6.7 BUN 11 13 Creatinine 0.81 0.80 Estimated GFR/1.73 m2 >= 60.00 >= 60.00 Glucose 94 103 H Calcium 7.9 L 8.2 L Troponin I
[2019-03-26 00:31] LABS: Anion Gap 6.2 mmol/L (3-11); BUN 13 mg/dL (7-18); CO2 27.8 mmol/L (21.0-32.0); CREATININE 0.69 mg/dL (0.70-1.30); Calcium 8.3 mg/dL (8.5-10.1); Chloride 98 mmol/L (98-107); Glucose 97 mg/dL (70-100); Potassium 4.3 mmol/L (3.5-5.1); Sodium 132 mmol/L (136-145)
[2019-03-26] MEDS: Ibuprofen 600 MG TAB PO ×2 (04:26→11:59)
[2019-03-26 04:30] VITALS: BP 114/69; PULSE 63; RESP 18; TEMP 36.7; O2SAT 98
--- NOTE | 2019-03-26 05:35 | DSE_ITS ---
Date of service: 03/26/19 Time of Service: 08:35 DS: Diagnosis Discharge Diagnosis (1) Hyponatremia: Status: Acute (2) Acute anemia: Status: Acute (3) Near syncope: Status: Acute (4) Primary osteoarthritis of left hip: Status: Acute Discharge Plan Disposition Patient Disposition: HOME Condition: Improving Discharge Details Reason For Visit: LEFT HIP DJD Admit Date/Time: 03/24/19 06:03 Admit Provider: Jaime Hitchcock Attending Provider: Jaime Hitchcock Primary Care Provider: Pattie June [facility] Hospital Course Hospital Course: was admitted to the medical surgical floor following his procedure. He tolerated procedure well with no anesthetic or medical complications. He did have blood loss of about 700 cc and was rather oozy. When he first try to mobilize on the floor he did get some lightheadedness. This resolved immediately upon lying down. He was unable to ambulate with physical therapy later that afternoon. However, on the evening of postop day #0 he developed lightheadedness which did not resolve as quickly and was associated with not feeling well, some confusion, and some chest pain. Troponins and EKG were normal. Hemoglobin had dropped from 13.9-9.6. Sodium had dropped to 120. He was then placed on fluid restriction. On postop day #1 he was able to mobilize with physical therapy with only one episode of lightheadedness which did not repeat with other multiple walking attempts. His pain was well controlled. His sodium improved with fluid restriction only which was relaxed towards the end of postop day #1. On postop day #2 his vital signs were stable. His hemoglobin reached a kay of 8.2. He was deemed safe for discharge home. Home Meds and New Rx's Prescriptions: New aspirin 81 mg tablet,delayed release (DR/EC) 81 mg PO BID Qty: 60 RF: 0 acetaminophen 500 mg tablet 1,000 mg PO Q8H PRN (Reason: pain) Qty: 90 RF: 3 ibuprofen 600 mg tablet 600 mg PO TID PRNQty: 90 RF: 3 hydrocodone-acetaminophen 5-325 mg tablet 1 tab PO Q4H PRN (Reason: pain) Qty: 6 RF: 0 Continued flaxseed oil 1,000 mg capsule 1,000 mg PO DAILY RF: 0 multivitamin 1 EACH tablet 1 ea PO DAILY RF: 0 cholecalciferol (vitamin D3) [Vitamin D3] 2,000 UNIT tablet 4,000 unit PO DAILY RF: 0 ascorbic acid (vitamin C) 1,000 MG tablet,chewable 1,000 mg PO DAILY RF: 0 vitamin B complex Capsule 1 cap PO DAILY PRNRF: 0 diphenhydramine HCl [Benadryl] 25 mg Capsule 50 mg PO QHS PRNRF: 0 Discontinued ibuprofen [Advil] 200 mg Tablet 200 - 400 mg PO BID RF: 0 Discharge Instructions Additional Instructions: Dr. Hitchcock?s Total Hip Discharge Instructions Activity: The most important activity is to walk. You should try to take short walks a few times a day. You have no restrictions on movement or positioning, but do not try to force what you do. You will find some stiffness and weakness with hip flexion (lifting your knee). Do not try to strengthen this too early, continue to practice walking and stairs and this will come. - Outpatient physical therapy can be helpful to help return you to a normal gait and improve your flexibility and strength. This can start around 2 weeks. For some patients, it?s not necessary. Usually this is determined at the time of discharge or at the first post-operative visit. - You should wear the ELOY hose on both legs for 2 weeks. Dressing: Keep the surgical dressing in place for at least one week. After the first week it may be removed and replace with light gauze and tape or nothing. It may get wet after 3 days but avoid soaking the dressing. If it gets wet, just lightly pat dry. It is important to always keep some gauze between skin folds, especially when you are sitting. Spend some time with the wound exposed when you are lying flat as the incision does wrinkle onto itself. Medications: - You should take Tylenol and an anti-inflammatory ibuprofen as your primary pain control medications - You have been prescribed a stronger pain medication hydrocodone for breakthrou gh pain, take as needed as prescribed. - You will be taking [Aspirin 81mg twice a day] for DVT prevention unless instructed otherwise. - If you have constipation you should take Colace or Miralax (both ccyy-kla-[id number]). It takes most people 3-4 days to have a bowel movement. Follow-up: [address] Hitchcock. You should also limit how much free water you drink while at home. This should be mixed with other beverages which have some electrolyte content such as Gatorade, Powerade, juices, sodas. He should also follow-up with your primary care doctor about your diagnosis of hyponatremia. Referrals: Pattie June [Primary Care Provider] - Jaime Hitchcock MD [ [facility] STAFF PHYSICIAN] - (2 weeks) Activity:: Activity as Tolerated Equipment/Supplies:: Walker Diet:: As Tolerated Discharge Orders Discharge Orders: Discharge Order (Routine); Ordered 03/26/19 Ordered By: Jaime Hitchcock DS: Data Vitals/I&O Vitals and I&O: Vital Signs Temperature 36.7 C 03/26/19 04:30 Temperature Source Skin 03/26/19 04:30 Pulse 63 03/26/19 04:30 Pulse Rhythm Regular 03/25/19 23:35 Respiratory Rate 18 03/26/19 04:30 Respiratory Effort 03/25/19 23:35 Respiratory Depth Normal 03/25/19 23:35 Respiratory Pattern Normal 03/25/19 23:35 Blood Pressure 114/69 03/26/19 04:30 Pulse Oximetry 98 03/26/19 04:30 Respiratory End-tidal CO2 33 03/24/19 10:20 Oxygen Delivery Method Room Air 03/26/19 04:30 Oxygen Flow Rate 0 03/26/19 04:30 Pain Level 2 03/26/19 04:26 Comment 03/26/19 04:30 Intake & Output 03/25/19 03/25/19 03/26/19 11:59 23:59 11:59 Intake Total 1906 / 2296 390 / 2296 120 / 120 Output Total 1300 / 2905 1605 / 2905 325 / 325 Balance 606 / -609 -1215 / -609 -205 / -205 Intake: IV 1786 / 1796 10 179 Oral 120 / 500 380 / 500 120 / 120 Output: Urine 1300 / 2905 1605 / 2905 325 / 325 Other: Urine Color Yellow Yellow Pale Yellow Urine Appearance Clear Clear Clear Urine Odor Normal Normal Normal Voiding Methods Urinal Bedpan Urinal Labs on day of discharge: Labs from last 24 hours 03/26/19 03/26/19 03/25/19 05:35 00:15 18:15 WBC RBC Hgb 8.2 L Hct 23.3 L MCV MCH MCHC RDW Plt Count MPV Sodium Pending 132 L Potassium Pending 4.3 Chloride Pending 98 Carbon Dioxide Pending 27.8 Anion Gap Pending 6.2 BUN Pending 13 Creatinine Pending 0.69 L Estimated GFR/1.73 m2 Pending >= 60.00 Glucose Pending 97 Calcium Pending 8.3 L 03/25/19 03/25/19 03/25/19 18:15 12:10 06:45 WBC RBC Hgb Hct MCV MCH MCHC RDW Plt Count MPV Sodium 129 L 127 L 126 L Potassium 4.5 4.2 3.9 Chloride 96 L 95 L 92 L Carbon Dioxide 26.3 25.6 26.4 Anion Gap 6.7 6.4 7.6 BUN 13 11 9 Creatinine 0.80 0.81 0.69 L Estimated GFR/1.73 m2 >= 60.00 >= 60.00 >= 60.00 Glucose 103 H 94 96 Calcium 8.2 L 7.9 L 7.9 L 03/25/19 06:45 WBC 6.12 RBC 2.58 L Hgb 8.4 L Hct 24.2 L MCV 93.8 MCH 32.6 MCHC 34.7 RDW 10.5 L Plt Count 253 MPV 8.7 Sodium Potassium Chloride Carbon Dioxide Anion Gap BUN Creatinine Estimated GFR/1.73 m2 Glucose Calcium [facility] Medical History (Updated 03/25/19 @ 19:23 by Martina Hugo MD) Enlarged prostate (Acute) History of hepatitis (Acute) Hyponatremia (Acute) Osteoarthritis (Chronic) Surgical History (Updated 03/25/19 @ 19:19 by Martina Hugo MD) H/O umbilical hernia repair (Acute) History of total right hip replacement (Inactive) Repair of inguinal hernia Transurethral prostatectomy Family History (Updated 03/25/19 @ 19:20 by Martina Hugo MD) Mother Hypertension Father Leukemia Social History (Updated 03/25/19 @ 19:21 by Martina Hugo MD) Smoking/Tobacco Use Status: Never Alcohol Intake: current Alcohol Intake frequency: a few times a week Drug use: Never Do you feel safe in your relationship?: Yes
[2019-03-26 06:59] VITALS: PULSE 63
[2019-03-26 07:07] LABS: Anion Gap 4.3 mmol/L (3-11); BUN 11 mg/dL (7-18); CO2 29.7 mmol/L (21.0-32.0); CREATININE 0.68 mg/dL (0.70-1.30); Calcium 8.3 mg/dL (8.5-10.1); Chloride 99 mmol/L (98-107); Glucose 94 mg/dL (70-100); Potassium 4.2 mmol/L (3.5-5.1); Sodium 133 mmol/L (136-145)
[2019-03-26 07:10] VITALS: BP 116/73; PULSE 82; RESP 82; TEMP 36.4; O2SAT 99
[2019-03-26] MEDS: Aspirin E.C. 81 MG TABEC PO (09:13)
[2019-03-26] MEDS: Acetaminophen 500 MG TAB 1000 MG PO (09:13)
[2019-03-26] MEDS: Cholecalciferol (Vitamin D3) 1,000 UNIT TAB 4000 UNITS PO (09:13)
[2019-03-26] MEDS: Multivitamin TAB 1 TAB PO (09:14)
[2019-03-26] MEDS: Ascorbic Acid 500 MG TAB 1000 MG PO (09:14)
[2019-03-26] MEDS: Pantoprazole 40 MG TABCR PO (09:14)
[2019-03-26 09:33] VITALS: PULSE 67
[2019-03-26 11:05] VITALS: BP 121/65; PULSE 71; RESP 16; TEMP 36.5; O2SAT 98
--- NOTE | 2019-03-26 12:30 | PT.INTREAT ---
Date of service: 03/26/19 Time of Service: 12:30 PT Notes Inpatient Physical Therapy Treatment Note [facility] Date: 03/26/19 PRECAUTIONS: Fall, WBAT L SUBJECTIVE: states that he was without incident last night, and even took several walks without feeling lightheaded or faint. OBJECTIVE: PAIN: Patient c/o minimal discomfort with gjm-gt-cvyki transfer in L hip area BED MOBILITY/TRANSFERS Sit-supine: I Sit-stand: S Stand-sit: S GAIT Assistive Device: FWW Weight bearing: WBAT L Assist: S Distance: 250' Deviation: Step-through gait pattern utilized THEREX: Patient completed a LE strengthening program, while seated at EOB, as per flow sheet. STAIRS:Up/down 3x4 and 2x6 using B rails and a step-over pattern with supervision ASSESSMENT: Patient tolerated session well with minimal c/o L hip discomfort with [id number] transfer. He continues to demonstrate independence with bed mobility. PLAN: As per primary PT TREATMENT CODE/TIME: 25 minutes; 33486, [id number]
--- NOTE | 2019-03-26 14:04 | PDOC.CMDIS ---
- If Service Date Differs Date of service: 03/26/19 Time of Service: 14:04 LACE Index Scoring Tool - Questions: Length of Stay (in days): 2 Acuity (Admit via E.D.?): No E.D. Visits: 0 - Answers: Total Score: 2 Risk of Readmission: Low Risk Care Management Discharge Reason for Hospitalization: Primary osteoarthritis of left hip Discharge Plan: will be discharged home with no additional services. His blood pressure and sodium levels have improved. [facility] will transport him via private vehicle. will follow up with Dr. Hitchcock and the discharge plan as prescribed. Patient/Family Education Needs: Discharge plan, limitations, follow up plan, Ask Me Three.
--- NOTE | 2019-03-27 17:12 | PT.INDS ---
Date of service: 03/26/19 PT Notes Inpatient Physical Therapy Discharge Summary Dates: 03/27/2019 Dates of Service: 03/24/2019 through 03/26/2019 This is a clinical summary of care provided on the duration of dates listed above. No charge was made in the completion of this documentation. Referring Doctor: Jaime Hitchcock MD PT Orders: PT CONSULT: Status post left MELISSA. Likely same day home discharge. Precautions: Fall. Standard. WBAT left LE. Patient Profile/Admitting Diagnosis: Patient is a 73-year-old male with left hip osteoarthritis status post left anterior MELISSA on postoperative day 0. PMHX: Medical History (Updated 03/19/19 @ 13:32 by Marilu Carmen RN) Osteoarthritis (Chronic) Social History/Home Situation: Patient lives with in a 1 floor house with 2 steps to enter without rails. Patient is independent with all aspects of ADLs without the need for an assistive ambulatory device nor adaptive equipment although recently, he states that he has been using his straight cane because of pain complaints on the left lower extremity related to arthritis. Current Functional Limitations: Need for assistive device and assistance for all transfer and ambulation task performance Equipment Owned/DME: [facility], [facility] Subjective: NT Objective: General Observation: NT Mental Status: NT Pain: NT Vital Signs: NT ROM: Right Upper Extremity: Shoulder Flexion WFL. Shoulder abduction WFL. Elbow flexion WFL. Wrist flexion WFL. Functional opening and closing of hand WFL. Left Upper Extremity: Shoulder Flexion WFL. Shoulder abduction WFL. Elbow flexion WFL. Wrist flexion WFL. Functional opening and closing of hand WFL. Right Lower Extremity: Hip flexion WFL. Hip abduction WFL. Knee flexion WFL. Ankle dorsiflexion WFL. Ankle plantarflexion WFL. Left Lower Extremity: Hip flexion allows about 30 degrees beyond 90 degrees while sitting at edge of bed. Hip abduction WFL. Knee flexion WFL. Knee extension WFL. Ankle dorsiflexion WFL. Ankle plantarflexion WFL. Strength: Right Upper Extremity: Shoulder flexors 5/5. Shoulder abductors 5/5. Elbow flexors 5/5. Elbow extensors 5/5. Internal Medicine Veterinary Technician strong. Left Upper Extremity: Shoulder flexors 5/5. Shoulder abductors 5/5. Elbow flexors 5/5. Elbow extensors 5/5. Internal Medicine Veterinary Technician strong. Right Lower Extremity: Hip flexors 5/5. Hip abductors 5/5. Knee flexors 5/5. Knee extensors 5/5. Ankle dorsiflexors 5/5. Ankle plantarflexors 5/5. Left Lower Extremity:Hip flexors 3-/5. Hip abductors 4-/5. Knee flexors 4/5. Knee extensors 4-/5. Ankle dorsiflexors 4/5. Ankle plantarflexors 4/5. Sensation: Intact as to pain and pressure on bilateral lower extremities. Bed Mobility/Transfers: Rolling independent Supine to sit independent Sit to supine independent Sit to stand supervision Stand to sit supervision Bed to chair supervision Chair to bed supervision Gait: Patient was able to tolerate level surface ambulation of up to 250 feet using FWW with supervision assist. Patient is able to tolerate stair negotiation x3 of 4 inch steps and x2 of 6 inch steps while holding onto bilateral rails using step over step pattern requiring supervision assist as well. Balance: Static Sitting: Good Dynamic Sitting: Good Static Standing: Fair Dynamic Standing: Fair Assessment: Patient is a 73-year-old male with left hip status post left anterior MELISSA on postoperative day 0. Patient presents with clinical signs and symptoms consistent with current/admitting diagnoses that have resulted to mobility limitations, gait instability, generalized weakness, and impairment of motor control as demonstrated by the following impairment level findings: 1. Decreased strength to left hip major muscle groups 2. Impaired standing balance 3. Impaired activity tolerance 4. Limitation of joint range of motion in left hip Impairments are contributing to the following functional limitations: 1. Dependent bed mobility skills 2. Increased dependence with transfers 3. Inability to safely ambulate without assistive device and physical assistance 4. Increase completion time for mobility ADL performance 5. Increased fall risk 6. Inability to negotiate steps alone safely Goals: Goals X1 week 1. Supine-Sit independent MET 2. Sit-Supine independent MET 3. Sit-Stand independent NOT MET 4. Stand-Sit independent NOT MET 5. Bed-Chair independent NOT MET 6. Chair-Bed independent NOT MET 7. Independent gait on level surface with use of least restrictive device for at least 300 feet without report of pain nor dyspnea NOT MET 8. Independent stair negotiation while holding onto bilateral rails for at least 10 steps without report of pain nor dyspnea NOT MET 9. Independent with home exercise program MET 10. Good static and dynamic standing balance/tolerance NOT MET DISCHARGE RECOMMENDATIONS: May benefit from skilled physical therapy services according to orthopedic surgeon timeline recommendations. Patient will be educated and trained on home exercise program per TKA exercise protocol in preparation for outpatient physical therapy services. TREATMENT CODE/TIME: NH Thank you very much for this referral. Alysia Hickman PT, DPT, CLT [facility]
== END 2019-03-26 12:50 | disposition home or self-care (01) | DRG 470 ==
LOC: PDS 06:05 → MS 10:26
PROVIDERS: Internal Medicine; Admitting Provider Student in an Organized Health Care Education/Training Program; PCP Family Medicine; Visit Provider Student in an Organized Health Care Education/Training Program
PROC: 0SRB04A Replacement of Left Hip Joint with Ceramic on Polyethylene Synthetic Substitute, Uncemented, Open Approach (ICD-10-PCS; CPT 27130; principal; 2019-03-24 07:30)
DX: M16.12 Unilateral primary osteoarthritis, left hip (principal); E87.1 Hypo-osmolality and hyponatremia; D62 Acute posthemorrhagic anemia; M25.552 Pain in left hip; Z96.642 Presence of left artificial hip joint; Y83.1 Surgical operation with implant of artificial internal device as the cause of abnormal reaction of the patient, or of later complication, without mention of misadventure at the time of the procedure; R07.89 Other chest pain; R55 Syncope and collapse
CPT/HCPCS: 27130; 36415; 80048; 85027; 97110; 97162; 97530; 99253; NC; 72170; 73501; 84484; 85014; 85018; 99222; J0690; J1100; J1885; J2405

== ENCOUNTER 2019-04-10 11:11 | Outpatient (CLI) | payer MEDICARE, OTHER, SELFPAY ==
--- NOTE | 2019-04-10 10:58 | DI.RAD_ITS ---
SYMPTOM/DIAGNOSIS: S/P LEFT MELISSA LEFT HIP AND PELVIS: Two views. Comparison 03/24/19 There are again seen post surgical changes of a left total hip replacement. No evidence of hardware failure is seen. The bones are intact. The soft tissues are unremarkable. Incidental note is made of a right total hip replacement. IMPRESSION: Stable left THR.
== END 2019-04-10 11:31 ==
PROVIDERS: Visit Provider Physician Assistant
DX: Z96.643 Presence of artificial hip joint, bilateral (principal); Z47.1 Aftercare following joint replacement surgery; M16.12 Unilateral primary osteoarthritis, left hip
CPT/HCPCS: 73502

== ENCOUNTER → 2019-05-04 10:15 | Outpatient (BNVA) | payer MEDICARE, OTHER, SELFPAY | PROVIDERS: Visit Provider Student in an Organized Health Care Education/Training Program | DX: Z47.1 Aftercare following joint replacement surgery (principal); Z96.652 Presence of left artificial knee joint ==

== ENCOUNTER → 2019-06-29 13:18 | Outpatient (BNVA) | payer MEDICARE, OTHER, SELFPAY | PROVIDERS: Referring Provider Family Medicine; Visit Provider Student in an Organized Health Care Education/Training Program | DX: Z47.1 Aftercare following joint replacement surgery (principal); Z96.642 Presence of left artificial hip joint ==

== ENCOUNTER 2019-10-14 12:29 | Outpatient (REF) | payer MEDICARE, OTHER, SELFPAY ==
[2019-10-14 22:48] LABS: Anion Gap 7.5 mmol/L (3-11); BUN 9 mg/dL (7-18); CO2 29.5 mmol/L (21.0-32.0); CREATININE 0.86 mg/dL (0.70-1.30); Calcium 9.2 mg/dL (8.5-10.1); Chloride 95 mmol/L (98-107); Glucose 93 mg/dL (74-106); Potassium 4.5 mmol/L (3.5-5.1); Sodium 132 mmol/L (136-145)
== END 2019-10-14 12:49 ==
LOC: NCHCN 12:29
PROVIDERS: Visit Provider Family Medicine
DX: E87.1 Hypo-osmolality and hyponatremia (principal)
CPT/HCPCS: 80048

== ENCOUNTER → 2020-03-07 12:57 | Outpatient (BNVA) | payer MEDICARE, OTHER, SELFPAY | PROVIDERS: Visit Provider Surgery | DX: Z12.11 Encounter for screening for malignant neoplasm of colon (principal) ==

== ENCOUNTER 2020-03-18 08:29 | Day surgery (SDC) | payer MEDICARE, OTHER, SELFPAY ==
[2020-03-18 08:41] VITALS: BP 127/81; PULSE 63; RESP 18; TEMP 36.5; O2SAT 98
[2020-03-18] MEDS: Lactated Ringers 1,000 ML 80 ML IV (09:21)
--- NOTE | 2020-03-18 09:37 | W.PM.DSUDISC ---
Discharge Plan Disposition Patient Disposition: HOME Condition: Good Discharge Details Reason For Visit: Colonoscopy Attending Provider: Jie David Primary Care Provider: Pattie June Home Meds and New Rx's Prescriptions: Continued el-0-hvd-epa-fish oil-vit D3 120 mg-180 mg -1,000 unit capsule 1 cap PO DAILY RF: 0 multivitamin 1 EACH tablet 1 ea PO DAILY RF: 0 cholecalciferol (vitamin D3) [Vitamin D3] 2,000 UNIT tablet 4,000 unit PO DAILY RF: 0 ascorbic acid (vitamin C) 1,000 MG tablet,chewable 1,000 mg PO DAILY RF: 0 vitamin B complex Capsule 1 cap PO DAILY PRNRF: 0 diphenhydramine HCl [Benadryl] 25 mg Capsule 50 mg PO QHS PRNRF: 0 acetaminophen 500 mg tablet 1,000 mg PO Q8H PRN (Reason: pain) Qty: 90 RF: 3 ibuprofen 600 mg tablet 600 mg PO TID PRNQty: 90 RF: 3 Discharge Instructions Additional Instructions: Findings: Your colonoscopy was normal. Follow up: You can consider screening colonoscopy in 10 years depending on your overall health or sooner if symptoms arise. Please call if you develop: fevers >101.5 Nausea or Vomiting Abdominal pain that is not transient DAY SURGERY UNIT POST COLONOSCOPY INSTRUCTIONS 1. Because there will be medication in your system for the next 24 hours, you may feel a little sleepy. Your coordination will be affected. Therefore: a. Do not drive or operate dangerous equipment for 24 hours. b. Do not drink alcohol beverages for 24 hours (not even beer). c. Plan to go home and rest for the day. 2. Generally there are no restrictions on your activity after a day or so has gone by, but you may feel a bit fatigued for a few days. 3 After you arrive home you may have a light meal and return to a normal diet as you can tolerate it without feeling sick to your stomach. 4. After surgery, you may feel pain or discomfort. This should be only transient, but if it persists please contact your doctor. 5. If there are any questions regarding the findings of your procedure, please feel free to contact your doctor. 6. If you are unable to contact your doctor with a problem, contact the hospital at [phone]. 7. Continue all your regular medications unless directed otherwise. I understand the above instructions and have no questions. Signature of Patient or Responsible Adult Escort Date/Time Name of Responsible Adult Escort Signature of Nurse Date/Time Activity:: Activity as Tolerated Diet:: As Tolerated Discharge Orders Discharge Orders: Discharge Order (Routine); Ordered 03/18/20 Ordered By: Jie David DS: Diagnosis Discharge Diagnosis (1) Encounter for screening colonoscopy: Status: Acute
--- NOTE | 2020-03-18 10:24 | W.COLOREPORT ---
Date of service: 03/18/20 Time of Service: 10:24 Colonoscopy Report Date of procedure: 03/18/20 Pre-op diagnosis general: Screening Post-op diagnosis procedure note: other (Normal) Procedure: Colonoscopy Surgeon: Jie David Anesthesia proc note operative: MAC Indications: This patient presents for routine screening colonoscopy. His last one in 2008 was normal. He is asymptomatic and has no FH colon cancer. Procedure Description: The patient was placed in the left Marks position. Propofol was titrated to sedation. Digital rectal examination revealed no abnormalities. The scope was advanced to the cecum without difficulty. The ileocecal valve and appendiceal orifice were clearly identified. The prep was good. The scope was slowly withdrawn over the course of greater than 6 minutes with no abnormalities seen in the ascending, transverse, descending, sigmoid colon or rectum including on retroflexed view. The patient tolerated the procedure well and was stable to recovery. Conisder routine screening colonoscopy in 10 years depending on overall health or sooner if symptoms indicate.
[2020-03-18 10:59] VITALS: BP 129/84; PULSE 52; RESP 16; TEMP 36.2; O2SAT 98
== END 2020-03-18 11:09 | disposition home or self-care (01) ==
PROVIDERS: PCP Family Medicine; Visit Provider Surgery
PROC: 0DJD8ZZ Inspection of Lower Intestinal Tract, Via Natural or Artificial Opening Endoscopic (ICD-10-PCS; CPT 45378; principal; 2020-03-18 10:15)
DX: Z12.11 Encounter for screening for malignant neoplasm of colon (principal)
CPT/HCPCS: G0121; J2001

== ENCOUNTER 2020-06-20 14:33 | Outpatient (CLI) | payer MEDICARE, OTHER, SELFPAY ==
--- NOTE | 2020-06-20 13:00 | DI.RAD_ITS ---
EXAM: XR HIP LT AP LAT ONLY CLINICAL HISTORY: annual f/u. TECHNIQUE: 2D digital imaging was performed. COMPARISON: No exams were available for comparison FINDINGS: BONES: There are stable post operative changes present. No acute fracture or dislocation. JOINTS: The joint spaces are well maintained. No joint effusion is present. SOFT TISSUE: Normal. IMPRESSION: Stable postoperative changes. DATA REPOSITORY: RADIATION DOSE DELIVERED:
== END 2020-06-20 14:53 ==
PROVIDERS: PCP Family Medicine; Visit Provider Student in an Organized Health Care Education/Training Program
DX: Z96.642 Presence of left artificial hip joint (principal); Z47.1 Aftercare following joint replacement surgery
CPT/HCPCS: 99213; 73502

== ENCOUNTER 2021-01-27 20:04 | Outpatient (REF) | payer MEDICARE, OTHER, SELFPAY ==
[2021-01-30 11:38] LABS: Lyme Ab w Rflx to Lyme Confirm Negative (Negative)
[2021-01-31 18:44] LABS: Anaplasma phagocytophilum Negative (Negative); B. miyamotoi PCR Negative (Negative); Babesia divergens/MO-1 Negative (Negative); Babesia duncani Negative (Negative); Babesia microti Negative (Negative); Ehrlichia chaffeensis Negative (Negative); Ehrlichia ewingii/canis Negative (Negative); Ehrlichia muris eauclairensis Negative (Negative)
== END 2021-01-27 20:05 | disposition home or self-care (01) ==
LOC: NCHCN 20:04
PROVIDERS: PCP Family Medicine; Visit Provider Family Medicine
DX: A93.8 Other specified arthropod-borne viral fevers (principal)
CPT/HCPCS: 87798; 86618

== ENCOUNTER 2021-02-24 18:45 | Outpatient (REF) | payer MEDICARE, OTHER, SELFPAY ==
[2021-02-24 20:32] LABS: Abs Immature Grans 0.02 10^3/uL (0.0-0.06); Absolute Basophil Count 0.02 10^3/uL (0.0-0.2); Absolute Eosinophil Count 0.04 10^3/uL (0.0-0.7); Absolute Lymphocyte Count 0.94 10^3/uL (1.2-3.4); Absolute Monocyte Count 0.38 10^3/uL (0.1-0.8); Absolute Neutrophil Count 3.77 10^3/uL (1.2-6.7); Basophils % 0.4; Eosinophils % 0.8; HCT 40.9 % (40.0-50.0); Immature Grans % 0.4; Lymphocytes % 18.2; MCH 33.4 pg (27.0-33.0); MCHC 34.2 % (32.0-36.0); MCV 97.6 fL (80-95); MPV 9.5 fL (8.0-11.0); Monocytes % 7.4; Neutrophils % 72.8; Nucleated RBC 0 %; Platelet Count 316 10^3/uL (130-400); RBC 4.19 10^6/uL (4.36-5.78); RDW 10.6 % (11.8-14.1); RDW-SD 37.6 fL; WBC 5.17 10^3/uL (4.4-10.8)
[2021-02-24 20:50] LABS: ESR 1 mm/hr (0-20)
[2021-02-24 20:57] LABS: ALT 42 U/L (16-63); AST 34 U/L (15-37); Albumin 4.3 g/dL (3.4-5.0); Alkaline Phosphatase 60 U/L (46-116); Anion Gap 7.1 mmol/L (3-11); BUN 12 mg/dL (7-18); Bilirubin, Total 1.5 mg/dL (0.2-1.0); CO2 28.9 mmol/L (21.0-32.0); CREATININE 0.9 mg/dL (0.70-1.30); Calcium 9.1 mg/dL (8.5-10.1); Chloride 93 mmol/L (98-107); Glucose 85 mg/dL (74-106); Potassium 4.4 mmol/L (3.5-5.1); Sodium 129 mmol/L (136-145); TSH (W/Ref FT4) 1.21 uIU/mL (0.36-3.74); Total Protein 6.9 g/dL (6.4-8.2)
[2021-02-24 21:14] LABS: Iron 153 ug/dL (65-175)
== END 2021-02-24 18:46 | disposition home or self-care (01) ==
LOC: NCHCN 18:45
PROVIDERS: PCP Family Medicine; Visit Provider Family Medicine
DX: R53.83 Other fatigue (principal); E87.1 Hypo-osmolality and hyponatremia; D64.9 Anemia, unspecified; R53.1 Weakness
CPT/HCPCS: 80053; 85652; 83540; 84443; 85025

== ENCOUNTER 2021-04-04 12:52 | Outpatient (REF) | payer MEDICARE, OTHER, SELFPAY ==
[2021-04-04 21:54] LABS: Abs Immature Grans 0.01 10^3/uL (0.0-0.06); Absolute Basophil Count 0.03 10^3/uL (0.0-0.2); Absolute Eosinophil Count 0.06 10^3/uL (0.0-0.7); Absolute Lymphocyte Count 0.85 10^3/uL (1.2-3.4); Absolute Monocyte Count 0.32 10^3/uL (0.1-0.8); Absolute Neutrophil Count 2.61 10^3/uL (1.2-6.7); Basophils % 0.8; Eosinophils % 1.5; HCT 38.6 % (40.0-50.0); HGB 13.2 g/dL (13.5-17.5); Immature Grans % 0.3; Lymphocytes % 21.9; MCH 33.4 pg (27.0-33.0); MCHC 34.2 % (32.0-36.0); MCV 97.7 fL (80-95); MPV 9.4 fL (8.0-11.0); Monocytes % 8.2; Neutrophils % 67.3; Nucleated RBC 0 %; Platelet Count 320 10^3/uL (130-400); RBC 3.95 10^6/uL (4.36-5.78); RDW 10.6 % (11.8-14.1); WBC 3.88 10^3/uL (4.4-10.8)
[2021-04-04 22:14] LABS: ALT 41 U/L (16-63); AST 33 U/L (15-37); Albumin 4.1 g/dL (3.4-5.0); Alkaline Phosphatase 60 U/L (46-116); Anion Gap 7.2 mmol/L (3-11); BUN 10 mg/dL (7-18); Bilirubin, Direct 0.2 mg/dL (0.0-0.2); Bilirubin, Total 0.9 mg/dL (0.2-1.0); CO2 28.8 mmol/L (21.0-32.0); CREATININE 0.8 mg/dL (0.70-1.30); Chloride 95 mmol/L (98-107); Glucose 85 mg/dL (74-106); Potassium 4.5 mmol/L (3.5-5.1); Sodium 131 mmol/L (136-145); Total Protein 6.6 g/dL (6.4-8.2)
== END 2021-04-04 12:53 | disposition home or self-care (01) ==
LOC: NCHCN 12:52
PROVIDERS: PCP Family Medicine; Visit Provider Family Medicine
DX: D64.9 Anemia, unspecified (principal); E87.1 Hypo-osmolality and hyponatremia
CPT/HCPCS: 80053; 80076; 85025

== ENCOUNTER 2021-08-02 20:51 | Outpatient (REF) | payer MEDICARE, OTHER, SELFPAY ==
[2021-08-02 21:05] LABS: Ferritin 167 ng/mL (26-388); TSH 1.66 uIU/mL (0.36-3.74)
[2021-08-02 21:06] LABS: Folate > 20.0 ng/mL (8.6-20.0)
[2021-08-02 21:43] LABS: Vitamin B12 342 pg/mL (193-986)
== END 2021-08-02 20:52 | disposition home or self-care (01) ==
LOC: NCHCN 20:51
PROVIDERS: PCP Family Medicine; Visit Provider Family Medicine
DX: D64.9 Anemia, unspecified (principal); R53.1 Weakness
CPT/HCPCS: 82607; 82728; 82746; 84443

== ENCOUNTER 2021-09-26 00:59 | Outpatient (CLI) | payer MEDICARE, OTHER, SELFPAY ==
--- NOTE | 2021-09-26 14:46 | DI.RAD_ITS ---
Exam(s) XR CERVICAL SPINE COMP 4-5V EXAM: XR CERVICAL SPINE COMP 4-5V CLINICAL HISTORY: ACUTE NECK PAIN,M54.2. TECHNIQUE: 2D digital imaging was performed. COMPARISON: No exams were available for comparison FINDINGS: No evidence of fracture, listhesis, nor offset of the spinal laminar line. There is moderate disc space narrowing at C5-6 and C6-7 level exhibits advanced disc space narrowing. Anterior osteophytes seen at this level. There is mild anterolisthesis of C4 upon C5 on degenerati ve facet joint basis. Multiple level facet arthropathy noted, more prominent on the right side. No cervical ribs. Left-sided Luschka joint osteophytes noted at C 4-5 at C5-6 and C6-7 levels. IMPRESSION: Multilevel degenerative disc disease and degenerative facet arthropathy. Incidentally noted on the lateral view is a thin linear density measuring approximately 3.5 cm length by less than 1 millimeter thickness anterior to the C4, C5, and C6 vertebral bodies. Correlation wi th any history of foreign body recommended. DATA REPOSITORY: RADIATION DOSE DELIVERED:
--- NOTE | 2021-09-26 14:46 | DI.RAD_ITS ---
Exam(s) XR SHOULDER LT COMPLETE 2+V EXAM: XR SHOULDER LT COMPLETE 2+V CLINICAL HISTORY: ACUTE PAIN,M54.2. TECHNIQUE: 2D digital imaging was performed. COMPARISON: No exams were available for comparison FINDINGS: No evidence of fracture or dislocation or abnormal soft tissue calcifications. No degenerative spivey es evident in the glenohumeral joint. AC joint appears unremarkable. Bone density normal. No osseo us lesions. IMPRESSION: No significant radiographic findings. DATA REPOSITORY: RADIATION DOSE DELIVERED:
== END 2021-09-26 01:19 ==
PROVIDERS: PCP Family Medicine; Visit Provider Family Medicine
DX: M54.2 Cervicalgia (principal); M25.512 Pain in left shoulder; M43.12 Spondylolisthesis, cervical region; M48.02 Spinal stenosis, cervical region
CPT/HCPCS: 72050; 73030

== ENCOUNTER 2022-06-04 16:30 | Outpatient (REF) | payer MEDICARE, OTHER, SELFPAY ==
[2022-06-04 19:34] LABS: Abs Immature Grans 0.02 10^3/uL (0.0-0.06); Absolute Basophil Count 0.04 10^3/uL (0.0-0.2); Absolute Eosinophil Count 0.07 10^3/uL (0.0-0.7); Absolute Lymphocyte Count 1.45 10^3/uL (1.2-3.4); Absolute Monocyte Count 0.53 10^3/uL (0.1-0.8); Absolute Neutrophil Count 5.29 10^3/uL (1.2-6.7); Basophils % 0.5; Eosinophils % 0.9; HCT 39.2 % (40.0-50.0); HGB 13.7 g/dL (13.5-17.5); Immature Grans % 0.3; Lymphocytes % 19.6; MCH 33.6 pg (27.0-33.0); MCHC 34.9 % (32.0-36.0); MCV 96 fL (80-95); MPV 9.2 fL (8.0-11.0); Monocytes % 7.2; Neutrophils % 71.5; Platelet Count 339 10^3/uL (130-400); RBC 4.08 10^6/uL (4.36-5.78); RDW 10.5 % (11.8-14.1); RDW-SD 37.3 fL
[2022-06-04 20:17] LABS: Iron 135 ug/dL (65-175); Total Iron Binding Capacity 336 ug/dL (250-450); Transferrin Sat 40 % (20-55)
[2022-06-04 20:26] LABS: ALT 41 U/L (16-63); AST 34 U/L (15-37); Albumin 4.2 g/dL (3.4-5.0); Alkaline Phosphatase 67 U/L (46-116); BUN 12 mg/dL (7-18); Bilirubin, Total 1.1 mg/dL (0.2-1.0); CREATININE 0.8 mg/dL (0.70-1.30); Calcium 9.4 mg/dL (8.5-10.1); Chloride 93 mmol/L (98-107); Estimated GFR 92.87 (mL/min/1.73m2); Ferritin 180 ng/mL (26-388); Glucose 90 mg/dL (74-106); Potassium 5.4 mmol/L (3.5-5.1); Sodium 129 mmol/L (136-145); Total Protein 7.5 g/dL (6.4-8.2)
[2022-06-04 20:36] LABS: Folate > 20.0 ng/mL (8.6-20.0)
== END 2022-06-04 16:31 | disposition home or self-care (01) ==
LOC: NCHCN 16:30
PROVIDERS: PCP Family Medicine; Visit Provider Family Medicine
DX: D64.9 Anemia, unspecified (principal); E04.1 Nontoxic single thyroid nodule
CPT/HCPCS: 80053; 82728; 82746; 83540; 83550; 85025

== ENCOUNTER → 2022-06-05 13:58 | Outpatient (CLI) | payer MEDICARE, OTHER, SELFPAY ==
--- OUTSIDE RECORDS SUMMARY | 2022-06-05 14:04 | XMS_ITS | Encounter Summary ---
:1945 Author Organization [facility] [place] [address] Care Team Providers Name Role Phone Cathy Dos Santos MD Primary Care Provider Encounter Details Date Type Department Care Team Description 07/24/2011 Office Visit Nephrology Sandoval Plata MD [facility] [address] NE[place] [address] Hyponatremia [place] [facility] [place] Castro MD [facility] [address] [place] [address] Dx) [place] [address] Social History Tobacco Use Types Packs/Day Years Used Date Never Smoker Sex Assigned at Date Recorded Not on file documented as of this encounter Last Filed Vital Signs Vital Sign Reading Time Taken Comments Blood Pressure 142/76 07/24/2011 2:03 PM EST Pulse 60 07/24/2011 2:03 PM EST Temperature - - Respiratory Rate - - Oxygen Saturation - - Inhaled Oxygen Concentration - - Weight 74.4 kg (164 lb) 07/24/2011 2:03 PM EST Height 172.7 cm (5' 8) 07/24/2011 2:03 PM EST Body Mass Index 24.94 07/24/2011 2:03 PM EST documented in this encounter Progress Notes Travis Bey MD - 08/06/2011 6:10 PM EST Addended by: TRAVIS BEY on: 08/06/2011 Modules accepted: Level of Service Travis Bey MD - 08/06/2011 6:08 PM EST Renal Staff Addendum: This patient is seen and examined with Dr. Castro and I agree with his note and make the following additional observations and comments: very interesting man with hyponatremia as outline by Dr. Castro. Na generally mildly low but he did get into 120s and may have had sx following his TURP. This is difficult to interpret as any surgery can provoke transient siadh and turp can provoke low Na if any of the irrigant is absorbed. At present he is asymptomatic and has no evidence by hx or exam of malignant dx, neurologic dz, or pulmonary dz (all relatively common causes of siadh). His kidney tonic could be playing a role and will need to be eliminated before we can draw any conclusions. If he has persistent hypotonic hyponatremia on f/u testing, the main ddx would be reset osmostat (which is idiopathic, not due to low solute intake in most cases) vs chronic siadh.This ddx could be sorted out by serialmeasurements over time or by water challenge. We will recheck the labs then see him back. Jonathan Castro MD - 08/06/2011 9:02 AM EST Addended by: JONATHAN CASTRO on: 08/06/2011 Modules accepted: Orders Jonathan Castro MD - 07/24/2011 6:09 PM EST CONSULTING PHYSICIAN: Cathy Dos Santos M.D. REASON FOR CONSULTATION: Hyponatremia. HISTORY OF PRESENT ILLNESS: Mr. John Parson is a 65-year-old gentleman with a history of benign prostatic hypertrophy, status post TURP in 03/2011, comes for evaluation of hyponatremia. According to the patient, he has been hyponatremic for a long time with most of the sodium readings between 129 to 133 mmol/L range. At the time of his TURP, his initial sodium was low around 129, so normal saline was given and following TURP dropped to as low as to 126, so he was given furosemide with subsequent improvement in Na. Following the TURP in 05/2011, his sodium was 129 with bicarbonate of 32.7, chloride of 92, calcium9.4, BUN of 10, and creatinine of 0.9. He says that he does not like to eat much. He takes some protein supplement in the morning, sometimes he takes oat meal cereal at lunch time and may sometimes skip lunch, and in the night he eats salad and sometimes he eats a steak. He does not like drinking much water and usually drinks six glasses of water/day. He also takes a kidney tonic (he does not remember the name) and believes that when he takes kidney tonic he urinates at least two times more than his usual of four times per day urinary habit. He denies any weight loss. He has Chronic cough which is going on for almost a Year. A chest x-ray was done, but negative for any malignancy as per report. He had a colonoscopy one year ago which was normal. As per report following TURP, his biopsy was negative for malignancy. Denies any lightheadedness, chest pain, shortness of breath. No swelling in the legs. PAST MEDICAL HISTORY: 1. Prepatellar bursitis. 2. TURP in 03/2011 for BPH. 3. History of arm fracture as a child. ALLERGIES: NKDA. MEDICATIONS: None. SOCIAL HISTORY: Works as a psychiatry nurse, one to two beers or alcoholic drinks per day. Smoked pot for at least 10 years as a teen. FAMILY HISTORY: Negative for any kidney disease. Review of Systems: System Abnormalities Constitutional no fevers, chills, night sweats or weight loss Eye no blurrry vision or diplopia ENT no dysphagia or hearing problems CV no chest pain or palpitation Resp + cough or SOB GI no abdominal pain or vomiting, no diarrhea no dysuria, frothy urine, hematuria Skin no rash Endocrine no heat or cold intolerance Neurologic no headache, no weakness or numbness Musculoskeletal no joint pain PHYSICAL EXAMINATION: General: Alert and oriented times three, appears pleasant. Vitals: Pulse 60, blood pressure 142/76 ( No ortho static drop), weight 74 kg, height 5 feet 8 inches. Neck: No JVD. No lymphadenopathy. Oral Cavity: Mucosa moist. Chest: Clear to auscultation bilaterally. Heart: S1 plus S2 , plus irregular rhythm. Abdomen: Soft and nontender. Bowel sounds positive. No visceromegaly. Extremities: No edema. Neurologic: Grossly nonfocal. LABORATORY DATA: Hemoglobin of 13.6, hematocrit of 38.7, MCV of 91.3, WBC of 8.8. LFTs normal. Sodium of 133, potassium 4, and chloride of 95, bicarbonate 26, BUN of 12, creatinine of 0.91. GFR more than 60. Calcium 10. Uric acid 3.5. Serum osmolality 279. Urine osmolality 305. Urine sodium 34. TSH of 1.75. Cortisol of 14.4. ASSESSMENT AND PLAN: Mr. John Parson is a 65-year-old gentleman who comes to us for evaluation of hyponatremia. 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 He is asymptomatic and does not warrant any medical intervention at this point; however, we ask him to stop his kidney tonic And will recheck his serum and urine sodium and serum/urine osmolality in a month - Water loading test was offered to the patient but he said that he wants to wait and see if stopping kidney tonic helps his Na . - Follow up after repeat labs The case was discussed with Dr. Bey, who agreed with the above. documented in this encounter Plan of Treatment Not on filedocumented as of this encounter Procedures Procedure Name Priority Date/Time Associated Diagnosis Comme nts SODIUM, URINE, RANDOM Routine 07/24/2011 1:35 Hyponatremia Res ults for this PM EST procedure are i n the results section. OSMOLALITY, URINE, Routine 07/24/2011 1:35 Hyponatremia Result s for this RANDOM PM EST procedure are i n the results section. HEMOGRAM Routine 07/24/2011 1:29 Hyponatremia Results for this PM EST procedure are i n the results section. URIC ACID Routine 07/24/2011 1:29 Hyponatremia Results for this PM EST procedure are i n the results section. TSH Routine 07/24/2011 1:29 Hyponatremia Results for this PM EST procedure are i n the results section. OSMOLALITY Routine 07/24/2011 1:29 Hyponatremia Results for this PM EST procedure are i n the results section. CORTISOL Routine 07/24/2011 1:29 Hyponatremia Results for this PM EST procedure are i n the results section. COMPREHENSIVE Routine 07/24/2011 1:29 Hyponatremia Results for this METABOLIC PANEL PM EST procedure ar e in (NON-FASTING) the results section. documented in this encounter Results Osmolality, urine, random (07/24/2011 1:35 PM EST) athologist Signature U Osmolality 305 50 - 1200 CERNER mOsm/kg MILLENNIUM Specimen Anatomical Collection Method Collection Time Receive d Time (Source) Location / / Volume Laterality Urine specimen 07/24/2011 1:35 PM 011 1:41 (specimen) EST PM EST Sandoval Plata MD URINE ORDERABLES Performing Organization Address City/[facility]/ZIP Code Phon e Number [address] CERNER MILLENNIUM Sodium, urine, random (07/24/2011 1:35 PM EST) athologist Signature U Sodium 34 mmol/L CERNER MILLENNIUM Specimen Anatomical Collection Method Collection Time Receive d Time (Source) Location / / Volume Laterality Urine specimen 07/24/2011 1:35 PM 011 1:40 (specimen) EST PM EST Sandoval Plata MD URINE ORDERABLES Performing Organization Address City/[facility] Code Phon e Number [address] CERNER MILLENNIUM Uric acid (07/24/2011 1:29 PM EST) athologist Signature Uric Acid 3.5 3.5 - 8.5 CERNER mg/dL MILLENNIUM Specimen Anatomical Collection Method Collection Time Receive d Time (Source) Location / / Volume Laterality Blood specimen 07/24/2011 1:29 PM 011 1:36 (specimen) EST PM EST Sandoval Plata MD CHEMISTRY ORDERABLES Performing Organization Address City/[facility] [place] [address] CERNER MILLENNIUM Cortisol (07/24/2011 1:29 PM EST) athologist Signature Cortisol 14.4 mcg/dL CERNER MILLENNIUM Comment: Reference ranges: ??AM (7-10am): ??6.2-19.4 mcg/dL ??PM (4-8pm): ??2.3-12.3 mcg/dL Specimen Anatomical Collection Method Collection Time Receive d Time (Source) Location / / Volume Laterality Blood specimen 07/24/2011 1:29 PM 011 1:36 (specimen) EST PM EST Sandoval Plata MD CHEMISTRY ORDERABLES Performing Organization Address City/State/[place] [address] CERNER MILLENNIUM TSH (07/24/2011 1:29 PM EST) athologist Signature TSH 1.75 0.27 - 4.20 CERNER mcIU/mL MILLENNIUM Specimen Anatomical Collection Method Collection Time Receive d Time (Source) Location / / Volume Laterality Blood specimen 07/24/2011 1:29 PM 011 1:36 (specimen) EST PM EST Sandoval Plata MD CHEMISTRY ORDERABLES Performing Organization Address City/State/ZIP Code Phon e Number [address] CERNER MILLENNIUM Osmolality (07/24/2011 1:29 PM EST) athologist Signature Osmolality 279 275 - 295 CERNER mOsm/kg MILLENNIUM Specimen Anatomical Collection Method Collection Time Receive d Time (Source) Location / / Volume Laterality Blood specimen 07/24/2011 1:29 PM 011 1:36 (specimen) EST PM EST Sandoval Plata MD CHEMISTRY ORDERABLES Performing Organization Address City/State/ZIP Code Phon e Number [address] CERNER MILLENNIUM (ABNORMAL) Comprehensive metabolic panel (non-fasting) (07/24/2011 1:29 PM EST) athologist Signature Glucose Lvl 96 60 - 199 CERNER mg/dL MILLENNIUM Comment: Diabetes: >=200 mg/dL plus symp toms BUN 12 10 - 20 mg/dL CERNER MILLENNIU M Creatinine 0.91 0.80 - 1.50 mg/dL CERNER MILL ENNIUM Sodium 133 (L) 135 - 145 mmol/L CERNER BRAIN NIUM Potassium 4.0 3.5 - 5.0 mmol/L CERNER BRAIN NIUM Comment: Please note: ??Patients with WBC >100,00 0 may have falsely elevated Potassium levels. ??For accurate Potassium quantif ication in these patients send serum separator tube (gold top) for subsequent determinations. ??Contact the Clinical Chemistry Laboratory if there are any qu estions. Chloride 95 (L) 98 - 107 mmol/L CERNER MILLENN IUM CO2 26 22 - 31 mmol/L CERNER MILLENNI UM Anion Gap 12 5 - 15 mmol/L CERNER MILLENNIU M Calcium 10.0 8.5 - 10.5 mg/dL CERNER BRAIN NIUM Total Protein 7.5 6.4 - 8.3 gm/dL CERNER MIL LENNIUM Albumin 4.6 3.2 - 5.2 gm/dL CERNER MILLENN IUM AST 32 0 - 39 unit/L CERNER MILLENNIU M ALT 26 0 - 55 unit/L CERNER MILLENNIU M Alk Phos 57 40 - 120 unit/L CERNER MILLENN IUM Total Bilirubin 1.0 0.2 - 1.3 mg/dL CERNER M ILLENNIUM Bili, Direct 0.2 0.0 - 0.3 mg/dL CERNER MILL ENNIUM Estimated GFR >60 >=60 CERNER MILLENNIU M Comment: The National Kidney Disease Education Pr ogram (NKDEP) has recommended all laboratories report estimated GFR (eGFR) along with plasma creatinine measurements to assist you with recognit ion of early kidney disease. Caveats: ??Plasma creatinine should be a t steady-state (unchanged within the past week). For patient s multiply eGFR by 1.2.MDRD equation has not been validated for pediatric pat ients and is only valid for patients with age >= 18 years. At present, NKDEP does NOT recommend usi ng the MDRD equation for drug dosing purposes and pharmacists should continue to use their current dosing methods. In addition, numerical eGFR values great er than 60 ml/min/1.73 square meters should be treated as > 60, and not an ex act number due to greater inaccuracies at these higher values. Per NKDEP, they classify normal renal function as any GFR >60ml/min/1.73 square meters; chronic kidney disease wh en GFR <60, and renal failure when GFR <15. ??This calculation may not be valid for patients with atypical muscle mass (very lean or obese), acute renal failur e, and in patients with diabetic kidney disease. References: http://nkdep.nih.gov/resources/NKDEP_Sug gestn4Labs_0606_508.pdf http://www.kidney.org/professionals/kls/ pdf/faq_gfr.pdf Specimen Anatomical Collection Method Collection Time Receive d Time (Source) Location / / Volume Laterality Blood specimen 07/24/2011 1:29 PM 011 1:36 (specimen) EST PM EST Sandoval Plata MD CHEMISTRY ORDERABLES Performing Organization Address City/State/[place] [address] CERNER MILLENNIUM (ABNORMAL) Hemogram (07/24/2011 1:29 PM EST) P athologist Signature WBC 8.8 4.0 - 10.0 CERNER x10(3)/mcL MILLENNIUM RBC 4.24 (L) 4.63 - CERNER 6.08 MILLENNIUM x10(6)/mcL Hemoglobin 13.6 (L) 13.7 - CERNER 17.5 gm/dL MILLENNIUM Hematocrit 38.7 (L) 40.0 - CERNER 51.0 % MILLENNIUM MCV 91.3 79.0 - CERNER 92.0 fL MILLENNIUM MCH 32.1 25.6 - CERNER 32.2 pg MILLENNIUM MCHC 35.1 32.0 - CERNER 36.5 gm/dL MILLENNIUM Platelets 327 145 - 370 CERNER x10(3)/mcL MILLENNIUM RDWSD 38.0 35.0 - CERNER 46.0 fL MILLENNIUM RDWCV 11.5 10.9 - CERNER 14.4 % MILLENNIUM MPV 8.7 (L) 9.0 - 12.0 CERNER fL MILLENNIUM Specimen Anatomical Collection Method Collection Time Receive d Time (Source) Location / / Volume Laterality Blood specimen 07/24/2011 1:29 PM 011 1:36 (specimen) EST PM EST Sandoval Plata MD HEMATOLOGY ORDERABLES Performing Organization Address City/State/ZIP Code Phon e Number [place] [id number] [facility] documented in this encounter Visit Diagnoses Diagnosis Hyponatremia - Primary Hyposmolality and/or hyponatremia documented in this encounter Care Teams Assistant Front End Manager Relationship Specialty Start Date End Date Cathy Dos Santos MD PCP - General 05/30/11 05/30/[address] [place] [address] documented as of this encounter
--- OUTSIDE RECORDS SUMMARY | 2022-06-05 14:04 | XMS_ITS | Encounter Summary ---
:1945 Author Organization [facility] Address [address] [place] [address] Care Team Providers Name Role Phone Kimberly Ayala APRN Primary Care Provider [phone] Pattie June MD Primary Care Provider Encounter Details Date Type Department Care Team Description 01/28/2021 Lab Requisition [facility] Outr Resulting Lab, Pathology & Laboratory Provider [facility] [address], [place] [address] Social History Tobacco Use Types Packs/Day Years Used Date Never Assessed Sex Assigned at Date Recorded Not on file documented as of this encounter Plan of Treatment Not on filedocumented as of this encounter Procedures Procedure Name Priority Date/Time Associated Diagnosis Comme nts LYME AB Routine 01/27/2021 12:52 EDT Results for this procedure are i n the results section . documented in this encounter Results LYME AB (01/27/2021 12:52 EDT) Pathologist Sig nature Lyme Ab NegativeComment: New Negative [facility] 3rd generation assay LABORATORY SERVICES in use 02/17/2020 Specimen Blood - Venous blood (substance) Performing Organization Address City/State/ZIP Code Phon e Number [facility] LABOR[facility]ORY [address] [place] [address] SERVICES documented in this encounter Visit Diagnoses Not on filedocumented in this encounter Care Teams Anatomical Embalmer Relationship Specialty Start Date End Date Kimberly Ayala APRN PCP - General 05/27/18 07/09/21 [address] [place] [address] Pattie June MD PCP - General Family Medicine - Primary 07/10/[address] [place] [id number] documented as of this encounter
--- OUTSIDE RECORDS SUMMARY | 2022-06-05 14:04 | XMS_ITS | Encounter Summary ---
:1945 Author Organization [facility] [place] [address] Care Team Providers Name Role Phone Cathy Dos Santos MD Primary Care Provider Encounter Details Date Type Department Care Team Description 07/23/2011 Orders Only Nephrology Hypertension Mahnaz Jolley MD Hyponatremia ([place] [facility] [place] [facility] [facility] [address] [place] [address] [place] [address] [phone] Social History Tobacco Use Types Packs/Day Years Used Date Never Assessed Sex Assigned at Date Recorded Not on file documented as of this encounter Plan of Treatment Not on filedocumented as of this encounter Results Osmolality, urine, random (07/24/2011 1:35 PM EST) athologist Signature U Osmolality 305 50 - 1200 CERNER mOsm/kg MILLENNIUM Specimen Anatomical Collection Method Collection Time Receive d Time (Source) Location / / Volume Laterality Urine specimen 07/24/2011 1:35 PM 011 1:41 (specimen) EST PM EST Sandoval Plata MD URINE ORDERABLES Performing Organization Address City/State/[place] [address] [facility] MILLENNIUM Sodium, urine, random (07/24/2011 1:35 PM EST) athologist Signature U Sodium 34 mmol/L CERNER MILLENNIUM Specimen Anatomical Collection Method Collection Time Receive d Time (Source) Location / / Volume Laterality Urine specimen 07/24/2011 1:35 PM 011 1:40 (specimen) EST PM EST Sandoval Plata MD URINE ORDERABLES Performing Organization Address City/[facility]/[place] [address] CERNER MILLENNIUM Uric acid (07/24/2011 1:29 PM EST) P athologist Signature Uric Acid 3.5 3.5 - 8.5 CERNER mg/dL MILLENNIUM Specimen Anatomical Collection Method Collection Time Receive d Time (Source) Location / / Volume Laterality Blood specimen 07/24/2011 1:29 PM 011 1:36 (specimen) EST PM EST Sandoval Plata MD CHEMISTRY ORDERABLES Performing Organization Address City/[facility] Phon e Number [address] CERNER MILLENNIUM Cortisol (07/24/2011 1:29 PM EST) athologist Signature Cortisol 14.4 mcg/dL CERNER MILLENNIUM Comment: Reference ranges: ??AM (7-10am): ??6.2-19.4 mcg/dL ??PM (4-8pm): ??2.3-12.3 mcg/dL Specimen Anatomical Collection Method Collection Time Receive d Time (Source) Location / / Volume Laterality Blood specimen 07/24/2011 1:29 PM 011 1:36 (specimen) EST PM EST Sandoval Plata MD CHEMISTRY ORDERABLES Performing Organization Address City/[facility]/ZIP [facility] [place] Phon e Number [address] CERNER MILLENNIUM TSH (07/24/2011 1:29 PM EST) P athologist Signature TSH 1.75 0.27 - 4.20 CERNER mcIU/mL MILLENNIUM Specimen Anatomical Collection Method Collection Time Receive d Time (Source) Location / / Volume Laterality Blood specimen 07/24/2011 1:29 PM 011 1:36 (specimen) EST PM EST Sandoval Plata MD CHEMISTRY ORDERABLES Performing Organization Address City/[facility]/ZIP Code Phon e Number [address] CERNER MILLENNIUM Osmolality (07/24/2011 1:29 PM EST) P athologist Signature Osmolality 279 275 - 295 CERNER mOsm/kg MILLENNIUM Specimen Anatomical Collection Method Collection Time Receive d Time (Source) Location / / Volume Laterality Blood specimen 07/24/2011 1:29 PM 011 1:36 (specimen) EST PM EST Sandoval Plata MD CHEMISTRY ORDERABLES Performing Organization Address City/[facility]/ZIP Code Phon e Number [address] CERNER MILLENNIUM (ABNORMAL) Comprehensive [...] Organization Address City/State/[place] [address] MONTSE DACOSTAENNIUM (ABNORMAL) Hemogram (07/24/2011 1:29 PM EST) P [...] Organization Address City/State/[place] [address] [facility] documented in this encounter Visit Diagnoses Diagnosis Hyponatremia - Primary Hyposmolality and/or hyponatremia documented in this encounter Care Teams Steam Shovel Runner Relationship Specialty Start Date End Date Cathy Dos Santos MD PCP - General 05/30/11 05/30/[address] [place] [address] documented as of this encounter
--- OUTSIDE RECORDS SUMMARY | 2022-06-05 14:04 | XMS_ITS | Clinical Summary ---
:1945 Author Organization [facility] Address [address] [place] [address] Care Team Providers Name Role Phone Pattie June MD Primary Care Provider Allergies Active Allergy Reactions Severity Noted Date Comments Codeine Headaches 04/08/2011 Other - See Comments Other (See Comments) 04/08/2011 Sulfasalazine Nausea And Vomiting 04/08/2011 Medications Medication Sig Dispensed Refills Start Date End Date Status ascorbic acid, Take 500 mg by 0 Active vitamin C, (VITAMIN mouth 2 times C) 500 mg tablet daily. Cholecalciferol, Take 2 Capsules by 0 Active Vitamin D3, (VITAMIN mouth daily. D3) 50 mcg (2,000 unit) capsule b complex vitamins Take 1 capsule by 0 Active (VITAMINS B COMPLEX) mouth daily. capsule RESTASIS 0.05 % INSTILL ONE DROP IN 0 06/17/2021 Active ophthalmic emulsion EACH EYE TWO TIMES A DAY DIRECTED tocopheryl acetate Take 100 Units by 0 Active (VITAMIN E) 45 mg mouth daily. 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 Atopic eczema 07/07/2021 Canker sore 07/07/2021 Ganglion cyst 07/07/2021 Elevated blood pressure reading without diagnosis of h ypertension 07/07/2021 Preventative health care 07/07/2021 Temporal headache 07/07/2021 Groin pain 07/07/2021 Palpitations 07/07/2021 Nasal polyp 07/07/2021 Malaise and fatigue 07/07/2021 Thyroid nodule 07/07/2021 Hyponatremia 07/07/2021 Osteoarthritis 07/07/2021 BPH (benign prostatic hyperplasia) 07/07/2021 Elevated prostate specific antigen (PSA) 07/07/2021 Encounters Date Type Specialty Care Team Description 05/01/2022 Documentation Visit Rehab Therapies Tracy Carter , PT 03/22/2022 Plan of Care Documentation Rehab [facility]ies from Last 3 Months Immunizations Name Administration Dates Next Due Covid-19 mRNA Vaccine (PFIZER COVID-19) 12/02/2020, 11/03/19 21 PF 0.3 ml IM (12 yrs+) Historical Hepatitis B Vaccine, 01/21/2009 Unspecified Historical Influenza Vaccine, Unspecified 08/17/2020 Historical Zoster Vaccine, Unspecified 01/08/2019, 8, 05/08/2011 MMR Vaccine SQ 01/21/2009 Pneumococcal Polysaccharide (PPSV23) 08/11/2015, 09/04/2013 Vaccine (PNEUMOVAX-23) =>2YO SQ/IM Td 10/12/2019 Tdap (BOOSTRIX) Vaccine =>7YO IM 04/20/2010 Social History Tobacco Use Types Packs/Day Years Used Date Never Smoker Sex Assigned at Date Recorded Not on file Last Filed Vital Signs Vital Sign Reading Time Taken Comments Blood Pressure - - Pulse - - Temperature 36.3 ??C (97.3 ??F) 11/01/2021 1302 EST Respiratory Rate 16 11/01/2021 1302 EST Oxygen Saturation 97% 11/01/2021 1302 EST Inhaled Oxygen Concentration - - Weight - - Height - - Body Mass Index - - Plan of Treatment Health Maintenance Due Date Last Done Comments Hepatitis C Screen 1945 Fall Risk Screening 2012 COVID-19 Vaccine (3 - Booster for Pfizer 01/27/2021 021, 11/03/2020 series) Insurance Payer Benefit Plan / Subscriber ID Effective Phone Address T ype Group Dates MEDICARE MEDICARE A/B [id number] 2012-Pres Jennifer reynolds GL ent [id number] [place] [address] COLONIAL QUITA [facility] QUITA [id number] Effective for [address] Commercial [employer] LIFE INSURANCE all dates [employer] [place] [employer] Chemistry [phone] BlankJohn Personal/Family Self 1945 [address] (Home) [place] [address] BlankJohn Personal/Family Self 1945 [address] (Home) [place] [address] Care Teams Carpenter Wooden Tank Erecting Relationship Specialty Start Date End Date Pattie June MD PCP - General Family Medicine - Primary 07/10/21 [address] [place] [phone]
--- OUTSIDE RECORDS SUMMARY | 2022-06-05 14:04 | XMS_ITS | Encounter Summary ---
:[address] [facility] Address [address] [place] [address] Care Team Providers Name Role Phone Pattie June MD Primary Care Provider Encounter Details Date Type Department Care Team Description 11/01/2021 Travel Social History Tobacco Use Types Packs/Day Years Used Date Never Smoker Sex Assigned at Date Recorded Not on file COVID-19 Exposure Response Date Recorded In the last month, have you been in contact with No / Unsure 11/01/2021 13:02 EST someone who was confirmed or suspected to have Coronavirus / COVID-19? documented as of this encounter Plan of Treatment Not on filedocumented as of this encounter Visit Diagnoses Not on filedocumented in this encounter Care Teams Trench Pipe Layer Relationship Specialty Start Date End Date Pattie June MD PCP - General Family Medicine - Primary 07/10/[address] [place] [phone] documented as of this encounter
--- OUTSIDE RECORDS SUMMARY | 2022-06-05 14:04 | XMS_ITS | Encounter Summary ---
:1945 Author Organization [facility] Address [address] [place] [address] Care Team Providers Name Role Phone Unknown, Provider Primary Care Provider Ce Leon NP Primary Care Provider Kimberly Ayala APRN Primary Care Provider [phone] Encounter Details Date Type Department Care Team Description 03/14/2011 Historical Results [facility] - Timothy Rodriguez, [place] [facility] [place] [facility] MD [address] [place] [address] [place], [place] [address] Social History Tobacco Use Types Packs/Day Years Used Date Never Assessed Sex Assigned at Date Recorded Not on file documented as of this encounter Plan of Treatment Not on filedocumented as of this encounter Procedures Procedure Name Priority Date/Time Associated Diagnosis Comme nts SURGICAL PATHOLOGY Routine 03/14/2011 Results f or this procedure are i n the results section . documented in this encounter Results SURGICAL PATHOLOGY (03/14/2011) Specimen Narrative [facility] - 011 9:49 EDT Name: PAWAN ESPINOZA ? : [birth year] ?Age/Sex: 73/M ?Unit#: [id number] ? Loc: SDS ? Status: DEP SDC ?? Reg Date: 03/14/11 ? Pt.Phone Number : ? Specimen: [id number] ? STA TUS: SOUT ?Spec Date:03/14/11 ? Physician Copies: ?Rhett Rodriguez ?? Tissues: A ?? Male Reproductive System ( PROSTATE CURETTINGS) ? Cathy Dos Santos MD ?? CPT: 54373 ?? Units: ??1 ?FINAL DIAGNOSIS ? Prostate, transurethral resection ; ? - Benign prostatic tissue includi ng: ?- Glandular and stromal h yperplasia. ?- Focal chronic inflammat ion. ?- Focal glandular atrophy . ? GROSS DESCRIPTION ? Received in formalin labeled with the patient's name and prostate tissue are ? multiple pieces of sparrow-pink prost ate chips aggregating 43 grams. ??The largest ? fragments measure about 1.5 cm, r .s. 5. CP ?? PREOP DX/CLINICAL HISTORY ?Benign prostatic hyperpla kvng. Signed ____(signature on file)____ Rosemary Blanco M.D. 03/15/11 By the signature above, the attending ph ysician certifies that he/she has personally conducted a gross and/or microscopic exa mination of the described specimens and rendered or confirmed the above diagnosi s. Test Performed by [facility], [address] [place] [address] Certified Legal Investigator: Rosemary Erwin MD PHD Performing Organization Address City/State/ZIP Code Phon e Number [facility] [address] [place] [address] LAB documented in this encounter Visit Diagnoses Not on filedocumented in this encounter Care Teams Animal Shelter Worker Relationship Specialty Start Date End Date Unknown, Provider, PCP - General 08/02/15 01/10/16 Ce Leon NP PCP - General 01/11/16 05/26/18 Kimberly Ayala APRN PCP - General 05/27/18 07/09/21 [address] [place] [address] documented as of this encounter
--- OUTSIDE RECORDS SUMMARY | 2022-06-05 14:04 | XMS_ITS | Encounter Summary ---
:1945 Author Organization [facility] Address [address] [place] [address] Care Team Providers Name Role Phone Unknown, Provider Primary Care Provider Ce Leon NP Primary Care Provider Kimberly Ayala APRN Primary Care Provider Encounter Details Date Type Department Care Team Description 02/27/2011 Historical Results [facility] - Timothy Rodriguez, [place] [facility] [place] [facility] MD [address] [place] [address] [place], [place] [address] Social History Tobacco Use Types Packs/Day Years Used Date Never Assessed Sex Assigned at Date Recorded Not on file documented as of this encounter Plan of Treatment Not on filedocumented as of this encounter Procedures Procedure Name Priority Date/Time Associated Diagnosis Comme nts SURGICAL PATHOLOGY Routine 02/27/2011 Results f or this procedure are i n the results section . documented in this encounter Results SURGICAL PATHOLOGY (02/27/2011) Specimen Narrative [facility] - 011 9:31 EDT PREOP ELEVATED PSA Procedure: PROSTATE BIOPSY Tissue Removed PROSTATE Clinical Hx: PSA 10.0 ?? Name: PAWAN ESPINOZA ? : [birth year] ?Age/Sex: 73/M ?Unit#: [id number] ? Loc: MUR ? Status: REG POV ?? Reg Date: 02/27/11 ? Pt.Phone Number : ? Specimen: [id number] ? STA TUS: SOUT ?Spec Date:02/27/11 ? Physician Copies: ?Rhett Rodriguez ?? Tissues: A ?? Male Reproductive System ( RIGHT BASE) ?Cathy Dos Santos MD ? B ?? Male Reproductive Syst em (RIGHT LAT MID) ? C ?? Male Reproductive Syst em (RIGHT MED MID) ? D ?? Male Reproductive Syst em (RIGHT LAT APEX) ? E ?? Male Reproductive Syst em (RIGHT MED APEX) ? F ?? Male Reproductive Syst em (LEFT BASE) ? G ?? Male Reproductive Syst em (LEFT LAT MID) ? H ?? Male Reproductive Syst em (LEFT MED MID) ? I ?? Male Reproductive Syst em (LEFT LAT APEX) ? J ?? Male Reproductive Syst em (LEFT MED APEX) ? CPT: 12289 ?? Units: 10 ?FINAL DIAGNOSIS ? A. ??Prostate, right base, core n eedle biopsy; ? - ?? Benign glands, extracapsular tissue. ? B. ??Prostate, right lateral mid, core needle biopsy; ? - ?? Benign glands with inflammat ion. ??Fragments of extracapsular tissue. ? C. ??Prostate, right medial mid, core needle biopsy; ? - ?? Atrophic glands. ??Fragments of extracapsular tissue. ? D. ??Prostate, right lateral apex , core needle biopsy; ? - ?? Atrophic glands. ??Fragments of extracapsular tissue. ? E. ??Prostate, right medial apex, core needle biopsy; ? - ?? Atrophic glands. ??Fragments of extra capsular tissue. ? F. ??Prostate, left base, core ne edle biopsy; ? - ?? Benign glands. ? G. ??Prostate, left lateral mid, core needle biopsy; ? - ?? Atrophic glands. ? H. ??Prostate, left medial mid, c ore needle biopsy; ? - ?? Atrophic glands. ? I. ??Prostate, left lateral apex, core needle biopsy; ? - ?? Atrophic glands. ? J. ??Prostate, left medial apex, core needle biospy; ? - ?? Atrophic glands. ? GROSS DESCRIPTION ? A. Received in Bouin's and juanita d right base is a tissue core 1.2 x 0.1 cm ? in diameter, e.s. ? B. Received in Bouin's and juanita d right lateral mid is a tissue core 1 x 0.1 ? cm in diameter, e.s. Patient: PAWAN ESPINOZA ? #[id number] ? (Continued) Specimen: [id number] ? Rec eived: 02/27/11 ?(Continued) ? GROSS DESCRIPTION ?(Continued) ? C. Received in Bouin's and labele d right medial mid is a tissue core 1.2 x ? 0.1 cm in diameter, e.s. ? D. Received in Bouin's and labele d right lateral apex is a tissue core 1.0 x ? 0.1 cm in diameter, e.s. ? E. Received in Bouin's and labele d right medial apex is a tissue core 1 x 0.1 ? cm in diameter, e.s. ? F. Received in Bouin's and labele d left base are two tissue cores, each is ? around 1 x 0.1 cm in diameter, e. s. ? G. Received in Bouin's and labele d left lateral mid is a tissue core 1.0 x ? 0.1 cm in diameter, e.s. ? H. Received in Bouin's and labele d left medial mid is a tissue core 1.4 x 0.1 ? cm in diameter, e.s. ? I. Received in Bouin's and labele d left lateral apex is a tissue core 1 x 0.1 ? cm in diameter, e.s. ? J. Received in Bouin's and labele d left medial apex is a tissue core 1 x 0.1 ? cm in diameter, e.s. BT ?? PREOP DX/CLINICAL HISTORY ?ELEVATED PSA Signed ____(signature on file)____ Chintan Ayala M.D. 03/01/11 ?? By the signature above, the attending ph ysician certifies that he/she has personally conducted a gross and/or microscopic exa mination of the described specimens and rendered or confirmed the above diagnosi s. Test Performed by [facility], [address] [place] [address] In Flight Technician: Rosemary Erwin MD PHD Performing Organization Address City/State/[facility] Code Phon e Number [facility] [address] [place] [address] LAB documented in this encounter Visit Diagnoses Not on filedocumented in this encounter Care Teams Student Ambassador Relationship Specialty Start Date End Date Unknown, Provider, PCP - General 08/02/15 01/10/16 Ce Leon NP PCP - General 01/11/16 05/26/18 Kimberly Ayala APRN PCP - General 05/27/18 07/09/21 [address] [place], [place] [address] documented as of this encounter
--- OUTSIDE RECORDS SUMMARY | 2022-06-05 14:04 | XMS_ITS | Encounter Summary ---
:1945 Author Organization [facility] Address [address] [place] [address] Care Team Providers Name Role Phone Unknown, Provider Primary Care Provider Encounter Details Date Type Department Care Team Description 01/09/2016 Hospital Encounter [facility] - S Unknown, Pro Ricardo tenorio MD [address] [facility] [phone] [place] [address] (Work) [phone] Social History Tobacco Use Types Packs/Day Years Used Date Never Assessed Sex Assigned at Date Recorded Not on file documented as of this encounter Discharge Disposition Disposition Code Departure Means Destination Home or Self [facility] documented in this encounter Plan of Treatment Not on filedocumented as of this encounter Visit Diagnoses Not on filedocumented in this encounter Care Teams Talent Sourcing Specialist Relationship Specialty Start Date End Date Unknown, Provider, PCP - General 08/02/15 01/10/16 documented as of this encounter
--- OUTSIDE RECORDS SUMMARY | 2022-06-05 14:04 | XMS_ITS | Encounter Summary ---
:1945 Author Organization [facility] Address [address] [place] [address] Care Team Providers Name Role Phone Unavailable Primary Care Provider Unavailable Encounter Details Date Type Department Care Team Description 03/03/2008 Before PRISM Converted [facility] - Sera Whitney, Visit (Maple) Destinee wise MD [address] [facility] [address] [place], [place] [id number] [place] [address], [place] [address] Social History Tobacco Use Types Packs/Day Years Used Date Never Assessed Sex Assigned at Date Recorded Not on file documented as of this encounter Plan of Treatment Not on filedocumented as of this encounter Procedures Procedure Name Priority Date/Time Associated Diagnosis Comme [facility] SURGICAL PATHOLOGY Routine 03/03/2008 0:00 EDT Re sults for this procedure are i n the results section. documented in this encounter Results SURGICAL PATHOLOGY (03/03/2008 0:00 EDT) Pathology Report: SURGICAL PATHOLOGY REPORT ? [facility] Reports generated via electr Responde Ai interface contain original data; ? LAB however they are lacking the format of the original report. ? Caution should be taken when reading/interpreting unformatted reports. ? Name: ? ALEXIS, PAWAN B ? Accession #: ? [id number] ? : ? 1945 (Age: 62) ??M ? Collec t Date: ? 03/03/2008 ? Location: ? [facility] ? R eceive Date: ? 03/04/2008 ? Provider: MATEO KARINA MD ? Copy to: ASHLEE MEIERDIERCKS MD ? NEO E GRETCHEN MD ? Final Pathologic Diagnosis: ? A. ?Prostate, r ight apex, needle core biopsy: ? 1. ?Benign pros tatic glands and stroma with chronic inflammation and ? atrophy. ? B. ?Prostate, r ight mid, needle core biopsy: ? 1. ?Benign pros tatic glands and stroma with chronic inflammation and ? atrophy. ? C. ?Prostate, r ight base, needle core biopsy: ? 1. ?Benign pros tatic glands and stroma with chronic inflammation and ? atrophy. ? D. ?Prostate, l eft apex, needle core biopsy: ? 1. ?Benign pros tatic glands and stroma with atrophy and mild acute and ?? chronic inflammation. ? E. ?Prostate, l eft mid, needle core biopsy: ? 1. ?Benign pros tatic glands and stroma with atrophy and mild chronic ? inflammation. ? F. ?Prostate, l eft base, needle core biopsy: ? 1. ?Benign pros tatic glands and stroma with no specific pathologic ? features. ? Document reviewed and electr onically signed by: ? RK WALLACE MD ? Report ??Date: 03/10/2008 17 :47 ? By the signature above, the attending physician certifies that he/she has ? personally conducted a gross and/or microscopic examination of the described ? specimens and rendered or co nfirmed the above diagnosis. ? Specimen(s) Received: ? Ultrasound-guided cor e biopsy trus bx prostate: ? A. ?Rt apex (#1 ) ? B. ? Rt mid (#2) ? C. ? Rt base (#3) ? D. ? Lt apex (#4) ? E. ? Lt mid (#5) ? F. ?? Lt base ? Clinical History: ? PSA approximately 10, R/O CAP, prev psa 14% pre (-) ? Gross Description: ? Received in formalin labelled Alexis and #1 ??right apex is a 1.0 x 0.1 cm sparrow-white soft core of ti ssue which is submitted intact as (A). ? Received in formalin umair d Alexis and #2 ??right mid are two sparrow-white ?? soft cores of tissue which m easure 1.8 cm in length and 0.1 cm in average ? diameter. ??The specimens ar e submitted intact as (B). ? Received in formalin umair d Alexis and #3 ??right base are two sparrow-white ?? soft cores of tissue which m easure 0.4 and 0.9 cm in length and average 0.1 cm ?? in diameter. ??The specimens are submitted intact as (C). ? Received in formalin umair d Alexis and #4 ??left apex are two sparrow-white ?? soft cores of tissue which m easure 0.5 and 1.0 cm in length and average 0.1 cm ?? in diameter. ??The specimens are submitted intact as (D). ? Received in formalin umair d Alexis and #5 ??left mid is a sparrow-white, firm core of tissue which measure s 1.3 cm in length and 0.1 cm in average diameter. ?? The specimen is submitted in tact as (E). ? Received in formalin umair jamshid Parson and #6 ??left base is a sparrow-white soft core of tissue which measure s 0.9 cm in length and 0.1 cm in average diameter. ?? The specimen is submitted in tact as (F). (Renata Atkins)/mpl ? End of Report ? Specimen Performing Organization Address City/State/ZIP Code Phon e Number [facility] [address] [place] [address] [facility] [address] [place] [address] documented in this encounter Visit Diagnoses Not on filedocumented in this encounter
--- OUTSIDE RECORDS SUMMARY | 2022-06-05 14:04 | XMS_ITS | Encounter Summary ---
:1945 Author Organization [facility] Address [address] [place] [address] Care Team Providers Name Role Phone Pattie June MD Primary Care Provider Encounter Details Date Type Department Care Team Description 07/31/2021 Travel Social History Tobacco Use Types Packs/Day Years Used Date Never Smoker Sex Assigned at Date Recorded Not on file COVID-19 Exposure Response Date Recorded In the last month, have you been in contact with No / Unsure 07/31/2021 13:56 EST someone who was confirmed or suspected to have Coronavirus / COVID-19? documented as of this encounter Plan of Treatment Not on filedocumented as of this encounter Visit Diagnoses Not on filedocumented in this encounter Care Teams Operator Engineer Relationship Specialty Start Date End Date Pattie June MD PCP - General Family Medicine - Primary 07/10/21 [address] [place] [phone] documented as of this encounter
--- OUTSIDE RECORDS SUMMARY | 2022-06-05 14:04 | XMS_ITS | Encounter Summary ---
:1945 Author Organization [facility] Address [address] [place] [address] Care Team Providers Name Role Phone Pattie June MD Primary Care Provider Reason for Visit Reason Comments Pain Encounter Details Date Type Department Care Team Description 12/27/2021 Telemedicine [facility] - Nathalie Junior pain (Primary Dx); [facility] Orthopedics & GHAZALA Page Left cervical radiculopathy Spine Medicine [address] [place] [address] [address], [place], [place] [address] [phone] [place], [place] [id number] Social History Tobacco Use Types Packs/Day Years Used Date Never Smoker Sex Assigned at Date Recorded Not on file documented as of this encounter Progress Notes Nathalie Junior PA-C - 12/27/2021 1100 EDT [facility] Telephone Visit Verbal consent: The concept of ???Telemedicine?? has been described to the patient.? Patient has been informed of the anticipated benefits and possible risks.? It was additionally discussed that because of the natureof spine complaints and the possible component of a significant neurological issue, that a formal physical examination would provide more detailed information to assist with diagnosis and treatment. The patient understands that this is a limitation of a telemedicine visit, but wishes to proceed. Patient understands the information provided regarding telemedicine, has had the opportunity to ask questions about this information, and all questions have been answered to patient???s satisfaction. Patientconsents for the use of telemedicine in his/her medical care and authorizes the transmission of any relevant medical information to providers and their staff involved in patient???s medical or mental health care. This visit was conducted via telephone. Chief Complaint: Neck and arm pain Left HPI: This is a 76-year-old male with history of hyponatremia, BPH, and anemia presenting for reevaluation of left-sided neck and arm symptoms. At his last office visit with me on 11/01/2021, complained of pain in the left side of the neck radiating into the intrascapular region, region of the tricep, and around towards the dorsum of his forearm. Reported occasional symptoms involving the middle 3fingers. Did also report experiencing some discomfort into the middle finger on the right hand. Symptoms started around September 23, 2021 after shoveling and bringing in firewood. Had some significant weakness at the onset, which is since improved. Symptoms aggravated with cervical extension, and activi ty such as stacking firewood. Was not experiencing any issues with balance or fine motor skills. We decided it was reasonable for him to continue physical therapy and plan on following up in 8 to 10 weeks. Today, meets with me via telemedicine reporting that his previously reported left-sided neck pain, intrascapular pain, and upper arm pain are resolved. If he overdoes it, and does not take breaks and what ever activity aggravates his neck pain, his neck pain can become aggravated to the point where it causes headaches at the base of his head. If this occurs, the patient finds that some of the recommendations from physical therapy in regard to position changes, and allowing his neck to relax, gives him relief of the symptoms after which she can resume his activities. Conservative Treatments: Physical therapy once in October, and then resuming 11/21/2021 with ongoingHEP with fair relief I have reviewed current problem list and current medications. ROS: As per HPI Objective: Examination: No vital signs were obtained secondary to the limitation of a telemedicine encounter. Pertinent exam findings patient can observe: None Data reviewed with patient: No new data to review Assessment & Plan: 1. Left-sided neck pain with left cervical radiculopathy John Parson is a pleasant 72-year-old male presenting via telemedicine for reevaluation of his left-sided neck and left radicular complaints reporting that he had continued improvement in his pain since her last office visit. He did see physical therapy and they have given him some tools which haveproved helpful in relieving his intermittent neck pain and occipital headaches. Patient is continuing to follow with physical therapy, and is going to see if there are any other recommendations that have to offer, otherwise he is planning on continuing his home exercise program. I talked with the patient recommending that he can follow-up with me on an as-needed basis, if his pain becomes more functionally limiting, or more difficult to manage on his own. Patient is happy with this plan. 1. Continue physical therapy and HEP 2. Follow-up as needed Patient initiated phone contact with the office: Yes , Is an established patient (parent, guardian) Yes, E/M provided within previous 7 days for same Assessment No, Anticipate E/M service within 24hrs or next available urgent appointment: No, Time spent in medical discussion 07-29. Nathalie Junior PA-C 12/27/2021 documented in this encounter Plan of Treatment Not on filedocumented as of this encounter Visit Diagnoses Diagnosis Neck pain - Primary Cervicalgia Left cervical radiculopathy Brachial neuritis or radiculitis nos documented in this encounter Care Teams Slab Polisher Relationship Specialty Start Date End Date Pattie June MD PCP - General Family Medicine - Primary 07/10/[address] [place] [phone] documented as of this encounter
--- OUTSIDE RECORDS SUMMARY | 2022-06-05 14:04 | XMS_ITS | Clinical Summary ---
:1945 Author Organization [facility] [place] [address] Care Team Providers Name Role Phone Pattie June MD Primary Care Provider Allergies Active Allergy Reactions Severity Noted Date Comments Codeine Other (See Comments) 07/24/2011 headach e Iodine And Iodide Containing Itching High 07/24/2011 Products Sulfa (Sulfonamide Antibiotics) Nausea And Vomiting Medications No known medications Social History Tobacco Use Types Packs/Day Years [...] Mass Index 24.94 07/24/2011 2:03 PM EST Plan of Treatment Health Maintenance Due Date Last Done Comments Covid-19 Vaccine (#1) 1952 Hepatitis C Screening 1965 Lipid Screening 1965 Tdap adult 1966 Tetanus vaccine 1966 Colonoscopy 1992 Zoster vaccine (1 of 2) 1997 Advance Directive 2002 Pneumoccocal Vaccine: 65+ (1 - PCV) 2012 Influenza (Flu) vaccine (1 of 1 - Influenza standard 05/10/2022 series) Insurance Payer Benefit Plan / Subscriber ID Effective Dates Phone Addre ss Type Group [employer] [id number] 2020-[place] [address] [place] [address] MEDICARE MEDICARE PART [id number] 2021-[place] [phone] [place] [phone] (Work) [phone] Care Teams Tab Card Press Operator Relationship Specialty Start Date End Date Pattie June MD PCP - General Family Medicine 05/31/21 [address] [place], [place] [id number]
--- OUTSIDE RECORDS SUMMARY | 2022-06-05 14:04 | XMS_ITS | Encounter Summary ---
:1945 Author Organization [facility] Address [address] [place] [address] Care Team Providers Name Role Phone Pattie June MD Primary Care Provider Reason for Visit Reason Onset Date Comments Other 10/17/2021 referral Encounter Details Date Type Department Care Team Description 10/17/2021 Telephone [facility] - [facility] Mary Ann Ivan, SPOT CHECKER Other (referral) Orthopedics & Sport [address] [place] [address] [address] [place], [place] [id number] Social History Tobacco Use Types Packs/Day Years Used Date Never Smoker Sex Assigned at Date Recorded Not on file documented as of this encounter Miscellaneous Notes Telephone Encounter - Karina Hudson LPN - 10/19/2021 0851 EST Spoke with in detail he mainly wanted to Know what he should bring to his appointment and what he should expect. He was asked to bring any office notes/ PT notes to his visit. well as a disk ofthe XRs he has. He reports understanding and was transferred to Admin for scheduling . elephone Encounter - Taryn Glass - 10/17/2021 1019 EST Called to schedule but wants to talk with someone in more detail so he's not doing everything over again Also he wants a televideo - I explained that we don't generally do new patient appointments via video or phone. Insisting on speaking with someone. He lives in [facility] documented in this encounter Plan of Treatment Not on filedocumented as of this encounter Visit Diagnoses Not on filedocumented in this encounter Care Teams Front Office Manager Relationship Specialty Start Date End Date Pattie June MD PCP - General Family Medicine - Primary 07/10/[address] [place] [phone] documented as of this encounter
--- OUTSIDE RECORDS SUMMARY | 2022-06-05 14:04 | XMS_ITS | Encounter Summary ---
:1945 Author Organization [facility] Address [address] [place] [address] Care Team Providers Name Role Phone Pattie June MD Primary Care Provider Reason for Visit Reason Comments Follow-up Encounter Details Date Type Department Care Team Description 08/14/2021 Telemedicine [facility] - Crystal Bermudez M acrocytic anemia (Primary Dx); [facility] Adult Hematology MBBS Vitamin B12 deficiency & Oncology [address] [place] [address] [place] [address] [address] [place] [id number] Social History Tobacco Use Types Packs/Day Years Used Date Never Smoker Sex Assigned at Date Recorded Not on file COVID-19 Exposure Response Date Recorded In the last month, have you been in contact with No / Unsure 07/31/2021 13:56 EST someone who was confirmed or suspected to have Coronavirus / COVID-19? documented as of this encounter Progress Notes Dinh Wallace RN - 08/14/2021 1430 EST Patient rooming was completed remotely by DINH WALLACE, RN in compliance with efforts to reduce exposure to COVID19. Patient pharmacy verified: Yes Patient insurance verified: Yes [employer] added to insurance Verbal consent given by patient to continue with telemedicine visit: Yes 08/14/21 14:18 Crystal Coker MBBS - 08/14/2021 1430 EST [facility] Video Visit I am conducting today's visit by Zoom Video due to the COVID-19 pandemic, and by the recommendationsfrom the [facility] to minimize patient exposure to our medical center. All patients who have routine follow up visits or are not on active cancer treatments will have visits postponed for an appropriate interval (as decided by the physician) or these visits may be offered bytelemedicine or phone consultation. This consultation has been reviewed by appropriate clinical staff and has been deemed appropriate for a video consultation. The patient consents to a video visit, isat home/work, and I, their MD, am in a private area. The location of the patient: Home The location of the provider: Office Verbal consent: The concept of ???Telemedicine?? has been described to the patient.? Patient has been informed of the anticipated benefits and possible risks.? Patient understands the information provided regarding telemedicine, has had the opportunity to ask questions about this information, and all questions have been answered to patient???s satisfaction. Patient consents for the use of telemedicine in his/her medical care and authorizes the transmission of any relevant medical information to providers and theirstaff involved in patient???s medical or mental health care. Macrocytic anemia: 02/24/2021: Hemoglobin: 14.0, MCV: 97.6, MCH: 33.4 ?? 04/04/2021: RBC: 3.95, hemoglobin: 13.2, MCV: 97.7, MCH: 33.4, WBC: 3.88, platelet count: 320, CMP issignificant for low sodium at 131. Total bilirubin: 1.9, AST: 33, ALT: 41 ?? 05/24/2021: Patient complained of weakness. 08/03/2021: Serum ferritin: 167, TSH: 1.66, vitamin B12: 342 pg/mL, serum folate:>20 ng/mL REASON FOR VISIT: Follow-up Subjective: I saw in follow-up today to discuss test results. He endorses mild fatigue. Otherwise, 10 point review of systems is negative. I have reviewed patient's past medical history, past surgical history, social and family history. No past medical history on file. No past surgical history on file. Social History Tobacco Use ??? Smoking status: Never Smoker Substance Use Topics ??? Alcohol use: Not on file ??? Drug use: Not on file Social History Social History Narrative Lives in [place], [place]. Retired. Active. RN for 30 years. No family history on file. I have reviewed allergies Allergies Allergen Reactions ??? Codeine Headaches ??? Other - See Comments Other (See Comments) ??? Sulfasalazine Nausea And Vomiting I have reviewed current medications Current Outpatient Medications Medication Sig Dispense Refill Last Dose ??? ascorbic acid, vitamin C, (VITAMIN C) 500 mg tablet Take 500 mg by mouth 2 times daily. Taking ??? b complex vitamins (VITAMINS B COMPLEX) capsule Take 1 capsule by mouth daily. Taking ??? Cholecalciferol, Vitamin D3, (VITAMIN D3) 50 mcg (2,000 unit) capsule Take 2 Capsules by mouth daily. Taking ??? RESTASIS 0.05 % ophthalmic emulsion INSTILL ONE DROP IN EACH EYE TWO TIMES A DAY DIRECTED Taking ??? tocopheryl acetate (VITAMIN E) 45 mg (100 unit) capsule Take 100 Units by mouth daily. Taking No current facility-administered medications for this visit. ECOG PS: 0-1 Objective: There were no vitals taken for this visit. No data found. Examination: General: Comfortable, cooperative and in no apparent distress NEURO: Alert and oriented x 3 Pertinent exam findings patient can observe: None Data reviewed with patient: Reviewed and/or ordered lab results: Results for orders placed or performed in visit on 01/27/21 LYME AB Result Value Ref Range Lyme Ab Negative Negative 08/03/2021: Serum ferritin: 167, TSH: 1.66, vitamin B12: 342 pg/mL, serum folate:>20 ng/mL Assessment & Plan: 75-year old male with no significant past medical history who has mild macrocytic anemia. Patient isnot alcoholic. Liver function tests are normal. TSH level is normal at 1.66. Serum ferritin is normal at 167. Folic acid level is >20. Vitamin B12 is at lower limits of normal at 342. Vitamin B12 deficiency could explain mild macrocytic anemia. I advised the patient to take vitamin B12, 1000 mcg daily. ?? Follow-up: 6 months, in person visit Patient initiated video contact with the office Yes Is an established patient (parent, guardian) Yes E/M provided within previous 7 days for same Assessment No Anticipate E/M service within 24hrs or next available urgent appointment No The following individuals and their role did participate in today's encounter visit: Provider: AURA Ball Patient I spent a total of 25 minutes on the date of this encounter meeting with the patient and reviewing documentation/coordinating care as described in the above note. No procedures were performed at the time of the visit. Orders placed in this visit: No orders of the defined types were placed in this encounter. Requested Prescriptions No prescriptions requested or ordered in this encounter Crystal Bermudez MD Clinical Practice Physician Hematology/ Medical Oncology [facility] Ph no: [phone] CC:Primary Care Provider: Pattie June [address] [place] [phone] documented in this encounter Plan of Treatment Not on filedocumented as of this encounter Visit Diagnoses Diagnosis Macrocytic anemia - Primary Unspecified deficiency anemia Vitamin B12 deficiency Other B-complex deficiencies documented in this encounter Historical Medications This list may reflect changes made after this encounter. Medication Sig Dispensed Refills Start Date End Date tocopheryl acetate Take 100 Units by 0 (VITAMIN E) 45 mg (100 mouth daily. unit) capsule added in this encounter Care Teams Graining Machine Operator Relationship Specialty Start Date End Date Pattie June MD PCP - General Family Medicine - Primary 07/10/[address] [place] [phone] documented as of this encounter
--- OUTSIDE RECORDS SUMMARY | 2022-06-05 14:04 | XMS_ITS | Encounter Summary ---
:1945 Author Organization [facility] Address [address] [place] [address] Care Team Providers Name Role Phone Kimberly Ayala APRN Primary Care Provider [phone] Reason for Visit Reason Onset Date Comments Other 07/07/2021 Encounter Details Date Type Department Care Team Description 07/07/2021 Telephone [facility] Adult Janis Martinez RN Other Hematology & Oncolog y [address] [place] [id number] Social History Tobacco Use Types Packs/Day Years Used Date Never Smoker Sex Assigned at Date Recorded Not on file documented as of this encounter Miscellaneous Notes Telephone Encounter - Janis Martinez RN - 07/07/2021 1249 EDT Chart preloaded for upcoming apt. documented in this encounter Plan of Treatment Not on filedocumented as of this encounter Visit Diagnoses Not on filedocumented in this encounter Historical Medications This list may reflect changes made after this encounter. Medication Sig Dispensed Refills Start Date End Date b complex vitamins Take 1 capsule by 0 (VITAMINS B COMPLEX) mouth daily. capsule Cholecalciferol, Vitamin Take 2 Capsules by 0 D3, (VITAMIN D3) 50 mcg mouth daily. (2,000 unit) capsule ascorbic acid, vitamin C, Take 500 mg by mouth 2 0 (VITAMIN C) 500 mg tablet times daily. added in this encounter Care Teams Residential Door Unit Installer Relationship Specialty Start Date End Date Kimberly Ayala APRN PCP - General 05/27/18 07/09/21 [address] [place] [address] documented as of this encounter
--- OUTSIDE RECORDS SUMMARY | 2022-06-05 14:04 | XMS_ITS | Encounter Summary ---
:[address] [facility] Address [address] [place] [address] Care Team Providers Name Role Phone Pattie June MD Primary Care Provider Encounter Details Date Type Department Care Team Description 03/22/2022 Plan of Care Documentation [facility] Thera py [address] [place], [place] [address] Social History Tobacco Use Types Packs/Day Years Used Date Never Smoker Sex Assigned at Date Recorded Not on file documented as of this encounter Progress Notes Tracy Carter, PT - 03/22/2022 1248 EDT Outpatient Rehab Plan of Care Therapy Diagnosis: Left upper quarter pain due to cervical radiculopathy Problem List: Decreased ROM, Need for an independent home exercise program, Pain and Postural deviation Assessment: Pt is a 76 year old male presenting with limited postural awareness, limited ROM,and limited activity tolerance due to pain. After completion of mechanical assessment, presentation is most consistent with a green-flag presentation, however, due to difficulties of virtual visits and lack ofany significant change in presentation today, recommend an in-person visit to apply manual techniques to confirm diagnosis and optimal course of care. Pt will benefit from skilled PT to decrease pain and restore function though may trial a familiar chiropractor 1st. Equipment Needed: none Barriers to Learning: none Potential Barriers to Progress: None Response to Evaluation: Well Rehabilitation Potential: Motivation/Commitment to Therapy: Good Rehabilitation Potential: Good Short-Term Goals Timeframe: 04/20/22 Goals: 1. Pt will demonstrate neutral upper quarter postures with cues to minimize unnecessary loading to mitigate pain. 2. Pt will attain neck rotation ROM Gabriele without limitation by pain to improve tolerance for repetitive tasks. 3. Pt will demonstrate neutral lifting mechanics to minimize unnecessary stress on L upper quarter. Long-Term Goals Timeframe: 05/21/22 Goals: 1. Pt will demonstrate neutral upper quarter postures without cues to minimize unnecessary loading to mitigate pain. 2. Pt will be independent with HEP. 3. Pt will be independent with symptom management. 4. Pt will consistently complete at least 30min of repetitive activity such as washing dishes without limitation by L upper quarter pain PLAN Medical Necessity: Therapy intervention is indicated in order to return to a premorbid level of function or significantly improve current level of function. Physical Therapy is recommended for: Treatment Frequency/ Duration: 2x/wk x 8 weeks Therapy Treatment to include: 94503 - Hot Cold Pack, 00567 - Mechanical Traction, G0283 - ElectricalStimulation Unsupervised, 52673 - Ultrasound, 39748 - Therapeutic Exercise, 32467 - Neuromuscular Re-education, 83727 - Aquatic Therapy/Exercise, 46857 - Manual Therapy and 28718 - Therapeutic Activity Recommended Consults: n/a Development of Plan of Care: Patient participated in development of plan of care today. ATTENDING PHYSICIAN: Medicare certification needed. Your signature indicates you approve the therapygoals and plan of care outlined on this document dated 03/20/2022. Thank you! Attending Physician Signature Date Tracy Carter, PT 03/22/2022 12:48 documented in this encounter Plan of Treatment Not on filedocumented as of this encounter Visit Diagnoses Not on filedocumented in this encounter Care Teams Emergency Medical Technician Basic Relationship Specialty Start Date End Date Pattie June MD PCP - General Family Medicine - Primary 07/10/[address] [place] [phone] documented as of this encounter
--- OUTSIDE RECORDS SUMMARY | 2022-06-05 14:04 | XMS_ITS | Encounter Summary ---
:1945 Author Organization [facility] Address [address] [place] [address] Care Team Providers Name Role Phone Ce Leon RETOUCHING OPERATOR Primary Care Provider Encounter Details Date Type Department Care Team Description 05/23/2018 Results Only [facility]- Nina Lama MD [phone] [address] [place] [phone] (Wo rk) Social History Tobacco Use Types Packs/Day Years Used Date Never Assessed Sex Assigned at Date Recorded Not on file documented as of this encounter Plan of Treatment Not on filedocumented as of this encounter Procedures Procedure Name Priority Date/Time Associated Diagnosis Comme nts SURGICAL PATHOLOGY Routine 05/23/2018 16:24 Resul ts for this EDT procedure are i n the results section. documented in this encounter Results SURGICAL PATHOLOGY (05/23/2018 16:24 EDT) Pathology Report: SURGICAL PATHOLOGY REPORT [facility] Reports generated via electronic interface contain suzette ginal data; LABORATORY however they are lacking the format of the original re port. SERVICES Caution should be taken when reading/interpreting unfo rmatted reports. Name: ? PAWAN ESPINOZA ? Accession #: ? [id number] ? : ? 1945 (Age: 9 0) ??M ? Collect Date: ? 05/23/2018 ? Location: ? [facility] ? Receive Date: ? 05/26/20 18 ? Provider: NINA HAMMOND MD Copy to: ? Final Pathologic Diagnosis: SKIN OF ARM, RIGHT UPPER, SHAVE BIOPSY: - Hemangioma. Microscopic Description: There is a dome-shaped papule formed by a proliferatio n of small vascular channels that has a lobular architecture. ??The vessel s are lined by an attenuated endothelium. ??Some of the vessels are matt ested. ??The overlying epidermis has a diminished rete ridge pattern. ??(Dr. Ness[facility] Document reviewed and electronically signed by: PRIYANK NESS MD Report ??Date: 05/27/2018 16:22 By the signature above, the attending physician certif ies that he/she has personally conducted a gross and/or microscopic examin ation of the described specimens and rendered or confirmed the above diagnosi s. Specimen(s) Received: Rt upper arm 8.0 mm lesion shave biopsy Clinical History: 8.0 mm raised lesion Rt upper arm Gross Description: ? Received in formalin labelled with proper patient identification (initials M, J) and R upper arm is a shave biopsy of a sparrow-bro wn, mottled, slightly raised papule (1.1 x 0.8 x 0.3 cm). The specimen is in ked, bisected, and submitted in 1. MADDY Edwards (ASCP) 05/26/2018 4:41 PM End of Report Specimen Performing Organization Address City/State/ZIP Code Phon e Number [facility] [address] [place] [address] SERVICES documented in this encounter Visit Diagnoses Not on filedocumented in this encounter Care Teams Agricultural Research Technician Relationship Specialty Start Date End Date Ce Leon NP PCP - General 01/11/16 05/26/18 documented as of this encounter
--- OUTSIDE RECORDS SUMMARY | 2022-06-05 14:04 | XMS_ITS | Encounter Summary ---
:1945 Author Organization [facility] [place] [address] Care Team Providers Name Role Phone Cathy Dos Santos MD Primary Care Provider Encounter Details Date Type Department Care Team Description 07/24/2011 Hospital Encounter Laboratory Sandoval Plata MD [facility] [place] [address] NEPHROLOGY DEPT. [phone] [place] [address] (Wo rk) Social History Tobacco Use Types Packs/Day Years Used Date Never Smoker Sex Assigned at Date Recorded Not on file documented as of this encounter Plan of Treatment Not on filedocumented as of this encounter Visit Diagnoses Not on filedocumented in this encounter Care Teams Cub Reporter Relationship Specialty Start Date End Date Cathy Dos Santos MD PCP - General 05/30/11 05/30/21 [address] [place] [address] documented as of this encounter
--- OUTSIDE RECORDS SUMMARY | 2022-06-05 14:04 | XMS_ITS | Encounter Summary ---
:1945 Author Organization [facility] Address [address] [place] [address] Care Team Providers Name Role Phone Unknown, Provider Primary Care Provider Ce Leon NP Primary Care Provider Kimberly Ayala APRN Primary Care Provider [phone] Encounter Details Date Type Department Care Team Description 06/22/2010 Historical Results [facility] - Timothy Rodriguez, Only [facility] Lab - Main [facility] MD [address] [place] [address] [place], [place] [address] Social History Tobacco Use Types Packs/Day Years Used Date Never Assessed Sex Assigned at Date Recorded Not on file documented as of this encounter Plan of Treatment Not on filedocumented as of this encounter Procedures Procedure Name Priority Date/Time Associated Diagnosis Comme nts CYTOLOGY Routine 06/22/2010 Results for thi s (NON-GYNECOLOGIC procedure a re in the INCLUDING FLUIDS AND results section. FINE NEEDLE ASPIRATION)- ORDER ONLY documented in this encounter Results CYTOLOGY (NON-GYNECOLOGIC INCLUDING FLUIDS AND FINE NEEDLE ASPIRATION)- ORDER ONLY (06/22/2010) Specimen Narrative [facility] - 010 16:41 EDT Type in Source of specimen? CYSTO, NOCTURIA, NORMAL EXAM Name: PAWAN ESPINOZA ? : [birth year] ?Age/Sex: 73/M ?Unit#: [id number] ? Loc: MUR ? Status: REG POV ?? Reg Date: 06/22/10 ? Pt.Phone Number : ? Specimen: [id number] ?STA DEVIKA: SOUT ?Spec Date:06/22/10 ? Physician Copies: ?Rhett Rodriguez ?? Tissues: ? Urine (NORMAL EXAM) ?Cathy Dos Santos MD ?? CPT: 54490 ?? Units: ??1 ?? NON SPLICER APPRENTICE CYTOLOGY DIAGNOSIS Urine, cystoscopic: - Moderately cellular specimen with reac tive urothelial cells including instrumented ??clusters. - No high grade features identified. ? SPECIMEN DESCRIPTION ? 60ML CLEAR YELLOW FLUID ?? 30ML PROCESSED ? 1 TP Signed ____(signature on file)____ Rosemary Blanco M.D. 06/26/10 By the signature above, the attending ph ysician certifies that he/she has personally conducted a gross and/or microscopic exa mination of the described specimens and rendered or confirmed the above diagnosi s. Test Performed by [facility], [address] [place] [address] Momd Teacher: Rosemary Erwin MD PHD Performing Organization Address City/State/ZIP Code Phon e Number [facility] [address] [place] [address] LAB documented in this encounter Visit Diagnoses Not on filedocumented in this encounter Care Teams Orientation And Mobility Instructor Relationship Specialty Start Date End Date Unknown, Provider, PCP - General 08/02/15 01/10/16 Ce Leon NP PCP - General 01/11/16 05/26/18 Kimberly Ayala APRN PCP - General 05/27/18 07/09/21 [address] [place] [address] documented as of this encounter
--- OUTSIDE RECORDS SUMMARY | 2022-06-05 14:04 | XMS_ITS | Encounter Summary ---
:1945 Author Organization [facility] Address [address] [place] [address] Care Team Providers Name Role Phone Pattie June MD Primary Care Provider Reason for Visit Reason Onset Date Comments Other 07/10/2021 Encounter Details Date Type Department Care Team Description 07/10/2021 Telephone [facility] - [facility] Savita Fraga NP Other Adult Hematology & O ncology [address] [place] [address] [place] [phone] (Wo rk) Social History Tobacco Use Types Packs/Day Years Used Date Never Smoker Sex Assigned at Date Recorded Not on file COVID-19 Exposure Response Date Recorded In the last month, have you been in contact with No / Unsure 07/31/2021 13:56 EST someone who was confirmed or suspected to have Coronavirus / COVID-19? documented as of this encounter Miscellaneous Notes Telephone Encounter - Homa Anthony - 07/10/2021 1517 EDT Spoke to pt, appt scheduled, pt aware. elephone Encounter - Viry Elizondo - 07/10/2021 1443 EDT Returned your call about scheduleing documented in this encounter Plan of Treatment Not on filedocumented as of this encounter Visit Diagnoses Not on filedocumented in this encounter Care Teams Warp Tester Relationship Specialty Start Date End Date Pattie June MD PCP - General Family Medicine - Primary 07/10/21 [address] [place] [address] documented as of this encounter
--- OUTSIDE RECORDS SUMMARY | 2022-06-05 14:04 | XMS_ITS | Encounter Summary ---
:1945 Author Organization [facility] Address [address] [place] [address] Care Team Providers Name Role Phone Unknown, Provider Primary Care Provider Encounter Details Date Type Department Care Team Description 01/09/2016 Results Only [facility] Edmar Braga, [address] [place], [place] [id number] (Wo rk) Social History Tobacco Use Types Packs/Day Years Used Date Never Assessed Sex Assigned at Date Recorded Not on file documented as of this encounter Plan of Treatment Not on filedocumented as of this encounter Procedures Procedure Name Priority Date/Time Associated Diagnosis Comme [facility] SURGICAL PATHOLOGY Routine 01/09/2016 11:07 Resul ts for this EDT procedure are i n the results section. documented in this encounter Results SURGICAL PATHOLOGY (01/09/2016 11:07 EDT) Pathology SURGICAL PATHOLOGY REPORT [facility] MEDICAL Report: Reports generated via electronic interface conta in original data; CENTER LABORATORY however they are lacking the format of the original re port. SERVICES Caution should be taken when reading/interpreting unfo rmatted reports. Name: ? PAWAN ESPINOZA ? Accession #: ? [id number] ? : ? 1945 (Age: 8 8) ??M ? Collect Date: ? 01/09/2016 ? Location: ? [facility] ? Receive Date: ? 6 ? Provider: EDMAR BRAGA DO Copy to: CE DOTSONAUDRY TELEPHONE SOLICITOR ? 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 See comment. Comment: Histologic evaluation reveals hyperplastic, polypoid s quamous mucosa with parakeratosis. ??The submucosa is remarkable for fibro sis with stellate fibroblasts, dilated vessels and marked chronic inflammation. 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 ??Dr. Vangie Ness has reviewed this case in consultation and agrees with the diagnosis rendered. Thermo Cementing Folder Operator slides of this case were also reviewed at the intradepartmental consultation conference. ??PAS with amylase stain is n egative for fungal organisms (control tissue stained appropriately). ??De eper levels have been examined. Dr. Wheeler 01/11/2016 1:03 PM Document reviewed and electronically signed by: JOAN WHEELER MD Report ??Date: 01/13/2016 11:56 By the signature above, the attending physician certif ies that he/she has personally conducted a gross and/or microscopic examin ation of the described specimens and rendered or confirmed the above diagnosi s. Specimen(s) Received: R nasrine Clinical History: R intranasal mass; clinical diagnosis code: ??D49.2 Gross Description: The specimen is initially received mislabeled. ??In ac cordance with the Laboratory Specimen Rejection Policy and Laboratory Ac countability policy, KARTHIK Duenas spoke with Ce Gallo RN, at [facility], who was involved with the collection of the specimen. She has verified that the specimen was actually [place] [facility] and has taken full responsibility for identifying and re-labelling the specimen with the correct patient name. Received in formalin umair d with proper patient identification (initials M, J) and right nasal mass is a 0.3 x 0.3 x 0.2 cm rubbery nodular tissue. The margin is inked. Entirely submitted in 1Darwin Marin 01/10/2016 1:47 PM End of Report Specimen Performing Organization Address City/State/ZIP Code Phon e Number [facility] [address] [place] [id number] SERVICES documented in this encounter Visit Diagnoses Not on filedocumented in this encounter Care Teams Header Dock Relationship Specialty Start Date End Date Unknown, Provider, PCP - General 08/02/15 01/10/16 documented as of this encounter
--- OUTSIDE RECORDS SUMMARY | 2022-06-05 14:04 | XMS_ITS | Encounter Summary ---
:1945 Author Organization [facility] Address [address] [place] [address] Care Team Providers Name Role Phone Pattie June MD Primary Care Provider Reason for Visit Reason Comments New Patient Visit Encounter Details Date Type Department Care Team Description 07/31/2021 Telemedicine [facility] - Crystal Bermudez M acrocytic anemia [facility] Adult Hematology MBBS (Primary Dx) & Oncology [address] [place] [address] [address] [place] [phone] Social History Tobacco Use Types Packs/Day Years Used Date Never Smoker Sex Assigned at Date Recorded Not on file COVID-19 Exposure Response Date Recorded In the last month, have you been in contact with No / Unsure 07/31/2021 13:56 EST someone who was confirmed or suspected to have Coronavirus / COVID-19? documented as of this encounter Progress Notes Jhoan Weiss RN - 07/31/2021 1430 EST Patient rooming was completed remotely by JHOAN WEISS RN in compliance with efforts to reduce exposure to COVID19. Patient pharmacy verified: Yes Patient insurance verified: Yes Verbal consent given by patient to continue with telemedicine visit: Yes 07/31/21 13:56 Crystal Coker MBBS - 07/31/2021 1430 EST HEMATOLOGY CONSULT NOTE [facility] Video Visit I am conducting today's visit by Zoom Video due to the COVID-19 pandemic, and by the recommendationsfrom the [facility] to minimize patient exposure to our medical [...] and all questions have been answered to patient's satisfaction. Patient consents for the use of telemedicine in his/her medical care and authorizes the transmission of any relevant medical information to providers and their staff involved in patient's medical or mental health care. PATIENT: John Parson CHIEF COMPLAINT New Patient Visit HISTORY OF PRESENT ILLNESS 02/24/2021: Hemoglobin: 14.0, MCV: 97.6, MCH: 33.4 04/04/2021: RBC: 3.95, hemoglobin: 13.2, MCV: 97.7, MCH: 33.4, WBC: 3.88, platelet count: 320, CMP issignificant for low sodium at 131. Total bilirubin: 1.9, AST: 33, ALT: 41 05/24/2021: Patient complained of weakness. Patient is being evaluated in hematology for mild macrocytic anemia. Patient endorses fatigue and generalized weakness which has been progressively getting worse for the last 2 years. He mentions that he is not motivated enough to work lately and has been taking frequent breaks to finish a task. He drinks beer occasionally. He mentions that he has had hepatitis C as a child. He denies liver disease, tingling or numbness sensation in fingers and toes. He prefers to eat vegetarian diet. He recently has been including eggs with his meals. PROBLEM LIST Patient Active Problem List Diagnosis ??? Weakness ??? Anemia ??? Dermacentor andersoni tick bite ??? Atopic eczema ??? Canker sore ??? Ganglion cyst ??? Elevated blood pressure reading without diagnosis of hypertension ??? Preventative health care ??? Temporal headache ??? Groin pain ??? Palpitations ??? Nasal polyp ??? Malaise and fatigue ??? Thyroid nodule ??? Hyponatremia ??? Osteoarthritis ??? BPH (benign prostatic hyperplasia) ??? Elevated prostate specific antigen (PSA) PAST HISTORY No past medical history on file. No past surgical history on file. No family history on file. Social History Tobacco Use ??? Smoking status: Never Smoker Substance Use Topics ??? Alcohol use: Not on file ??? Drug use: Not on file Social History Social History Narrative Lives in [place], [place]. Retired. Active. RN for 30 years. MEDICATIONS Current Outpatient Medications Medication Sig Dispense Refill [...] EYE TWO TIMES A DAY DIRECTED Taking No current facility-administered medications for this visit. ALLERGIES Allergies Allergen Reactions ??? Codeine Headaches ??? Other - See Comments Other (See Comments) ??? Sulfasalazine Nausea And Vomiting REVIEW OF SYSTEMS Constitutional: Positive for activity change and fatigue. Negative for appetite change and fever. HENT: Negative for congestion. Respiratory: Negative for shortness of breath. Cardiovascular: Negative for chest pain and leg swelling. Gastrointestinal: Negative for abdominal distention and abdominal pain. Genitourinary: Negative for difficulty urinating. DIAGNOSTIC DATA Results for orders placed or performed in visit on 01/27/21 LYME AB Result Value Ref Range Lyme Ab Negative Negative VITALS No data found. There were no vitals filed for this visit. PHYSICAL EXAM General: Comfortable, cooperative and in no apparent distress NEURO: Alert and oriented x 3 Pertinent exam findings patient can observe: None DIAGNOSIS The encounter diagnosis was Macrocytic anemia. ASSESSMENT 75-year old male with no significant past medical history who is being referred for generalized weakness and mild macrocytic anemia. Differential diagnosis for macrocytic anemia include: Drugs, liver disease, alcoholism, hypothyroidism, nutritional deficiencies including vitamin B12 deficiency, folate deficiency, trace mineral deficiencies including copper deficiency, MDS I do not see any medications that can explain macrocytosis. Patient is not alcoholic, he drinks beeroccasionally. Recently checked liver function tests are normal. It is reasonable to screen for hypothyroidism given generalized weakness and macrocytic anemia. Patient is a vegetarian and does not eat red meat. Vitamin B12 deficiency can explain mild macrocytic anemia. I will screen for nutritional deficiency by checking vitamin B12 level, folate level and serum ferritin level. Plan: #1. Patient has mild macrocytic anemia. #2. Rule out hypothyroidism. #2. Screen for nutritional deficiency by checking serum ferritin, vitamin B12 and folate level. Follow-up: Tele on 08/14 Patient initiated video contact with the office Yes Is an established patient (parent, guardian) No E/M provided within previous 7 days for same Assessment No Anticipate E/M service within 24hrs or next available urgent appointment No I spent a total of 45 minutes on the date of this encounter meeting with the patient and reviewing documentation/coordinating care as described in the above note. No procedures were performed at the time of the visit. The following individuals and their role did participate in today's encounter visit: Provider: AURA Ball Patient Partner Nimco Orders placed in this visit: Other Orders Placed This Visit Procedures ??? Folate ??? Ferritin ??? Vitamin B12 ??? TSH Requested Prescriptions No prescriptions requested or ordered in this encounter Crystal Bermudez MD Clinical Practice Physician Hematology/ Medical Oncology [facility] Ph no: [phone] CC:Primary Care Provider: Pattie June [address] [place] [phone] documented in this encounter Plan of Treatment Scheduled Orders Name Type Priority Associated Diagnoses Order S chedule FOLATE Lab Routine Macrocytic Anemia Ordered: 1 09/30/2020 FERRITIN Lab Routine Macrocytic Anemia Ordered: 1 09/30/2020 VITAMIN B12 Lab Routine Macrocytic anemia Ordered: 1 09/30/2020 TSH Lab Routine Macrocytic anemia Ordered: 09/30/2020 documented as of this encounter Visit Diagnoses Diagnosis Macrocytic anemia - Primary Unspecified deficiency anemia documented in this encounter Historical Medications This list may reflect changes made after this encounter. Medication Sig Dispensed Refills Start Date End Date RESTASIS 0.05 % INSTILL ONE DROP IN 0 06/17/2021 ophthalmic emulsion EACH EYE TWO TIMES A DAY DIRECTED added in this encounter Care Teams Staff Counsel Relationship Specialty Start Date End Date Pattie June MD PCP - General Family Medicine - Primary 07/10/21 [address] [place] [address] documented as of this encounter
--- OUTSIDE RECORDS SUMMARY | 2022-06-05 14:04 | XMS_ITS | Encounter Summary ---
:1945 Author Organization [facility] [place] [address] Care Team Providers Name Role Phone Cathy Dos Santos MD Primary Care Provider Encounter Details Date Type Department Care Team Description 08/06/2011 E-Visit Nephrology Hypertension at Jonathan Jolley MD [facility] Isis teran [place] [address] [place] [address] [phone] (Wo rk) Social History Tobacco Use Types Packs/Day Years Used Date Never Smoker Sex Assigned at Date Recorded Not on file documented as of this encounter Miscellaneous Notes Telephone Encounter - Jonathan Jolley MD - 08/06/2011 9:00 AM EST Patient has been instructed to fax us the labs ( Urine and serum osm, BMP, urine na) once he receives them by mail. documented in this encounter Plan of Treatment Not on filedocumented as of this encounter Visit Diagnoses Not on filedocumented in this encounter Care Teams Wellness Program Coordinator Relationship Specialty Start Date End Date Cathy Dos Santos MD PCP - General 05/30/11 05/30/21 [address] [place] [address] documented as of this encounter
--- OUTSIDE RECORDS SUMMARY | 2022-06-05 14:04 | XMS_ITS | Encounter Summary ---
:1945 Author Organization [facility] Address [address] [place] [address] Care Team Providers Name Role Phone Pattie June MD Primary Care Provider Encounter Details Date Type Department Care Team Description 11/24/[address] [facility] [address] [place], [place] [id number] Social History Tobacco Use Types Packs/Day Years Used Date Never Smoker Sex Assigned at Date Recorded Not on file COVID-19 Exposure Response Date Recorded In the last month, have you been in contact with No / Unsure 11/01/2021 13:02 EST someone who was confirmed or suspected to have Coronavirus / COVID-19? documented as of this encounter Progress Notes Tracy Carter, PT - 11/27/2021 0852 EDT Outpatient Rehab Plan of Care Therapy Diagnosis: left upper quarter pain due to a posterior lower cervical derangement Problem List: Decreased ROM, Decreased strength, Difficulty lifting, Need for an independent home exercise program, Pain and Postural deviation Assessment: Pt is a 76 year old male presenting with limited postural awareness, limited ROM, limited strength and limited activity tolerance due to pain. After completion of mechanical assessment, presentation is most consistent with a green-flag presentation, specifically a posterior lower cervical derangement though may also have an upper cervical spine derangement. Pt will benefit from skilled PTto decrease pain and restore function. Equipment Needed: none Barriers to Learning: none Potential Barriers to Progress: None Response to Evaluation: Well Rehabilitation Potential: Motivation/Commitment to Therapy: Good Rehabilitation Potential: Good Short-Term Goals Timeframe: 12/22/21 Goals: 1. Pt will demonstrate neutral upper quarter postures with cues to minimize unnecessary loading to mitigate pain. 2. L wrist extension will increase to 5/5 to improve tolerance for shoveling. 3. Pt will demonstrate neutral lifting mechanics to minimize unnecessary stress on L upper quarter. Long-Term Goals Timeframe: 01/21/22 Goals: 1. Pt will demonstrate neutral upper quarter postures without cues to minimize unnecessary loading to mitigate pain. 2. Pt will be independent with HEP. 3. Pt will be independent with symptom management. 4. Pt will consistently shovel snow or dirt without limitation by L upper quarter pain PLAN Medical Necessity: Therapy intervention is indicated in order to return to a premorbid level of function or significantly improve current level of function. Physical Therapy is recommended for: Treatment Frequency/ Duration: 2x/wk x 8 weeks Therapy Treatment to include: 11191 - Hot Cold Pack, 28325 - Mechanical Traction, G0283 - ElectricalStimulation Unsupervised, 62673 - Ultrasound, 56137 - Therapeutic Exercise, 16335 - Neuromuscular Re-education, 80325 - Manual Therapy and 13673 - Therapeutic Activity Recommended Consults: n/a Development of Plan of Care: Patient participated in development of plan of care today. ATTENDING PHYSICIAN: Medicare certification needed. Your signature indicates you approve the therapygoals and plan of care outlined on this document dated 11/21/2021. Thank you! Attending Physician Signature Date Tracy Carter, PT 11/24/2021 13:06 documented in this encounter Plan of Treatment Not on filedocumented as of this encounter Visit Diagnoses Not on filedocumented in this encounter Care Teams Trimming Press Operator Relationship Specialty Start Date End Date Pattie June MD PCP - General Family Medicine - Primary 07/10/[address] [place] [address] [phone] documented as of this encounter
--- NOTE | 2022-06-05 15:06 | DI.RAD_ITS ---
Exam(s) XR CHEST 2V PA LATERAL EXAM: XR CHEST 2V PA LATERAL CLINICAL HISTORY: LYMPHADENOPATHY, R59.1 TECHNIQUE: 2D digital imaging was performed of the chest. Two images were obtained. PA and lateral views were obtained. COMPARISON: CR CHEST 2 VIEWS PA,LAT from 07/14/2014 FINDINGS: MEDIASTINUM: Normal. HEART: Normal. PULMONARY VASCULATURE: Normal. LUNGS: Clear. There is a calcified granuloma again seen in the left lung base laterally. PLEURAL SPACE: No pleural effusion or pneumothorax. BONE:Within normal limits for the patient's age. There is a pectus excavatum deformity. OTHER FINDINGS:Normal. IMPRESSION: No acute pulmonary findings. DATA REPOSITORY: RADIATION DOSE DELIVERED:
== END ==
PROVIDERS: PCP Family Medicine; Visit Provider Family Medicine
DX: R59.1 Generalized enlarged lymph nodes (principal)
CPT/HCPCS: 71046

== ENCOUNTER 2022-08-23 17:52 | Outpatient (REF) | payer MEDICARE, OTHER, SELFPAY ==
[2022-08-23 21:14] LABS: Abs Immature Grans 0.01 10^3/uL (0.0-0.06); Absolute Basophil Count 0.02 10^3/uL (0.0-0.2); Absolute Eosinophil Count 0.06 10^3/uL (0.0-0.7); Absolute Lymphocyte Count 1.39 10^3/uL (1.2-3.4); Absolute Monocyte Count 0.51 10^3/uL (0.1-0.8); Absolute Neutrophil Count 5.37 10^3/uL (1.2-6.7); Basophils % 0.3; Eosinophils % 0.8; HGB 13.5 g/dL (13.5-17.5); Immature Grans % 0.1; Lymphocytes % 18.9; MCH 32.8 pg (27.0-33.0); MCHC 34.6 % (32.0-36.0); MCV 95 fL (80-95); MPV 9.3 fL (8.0-11.0); Monocytes % 6.9; Platelet Count 326 10^3/uL (130-400); RBC 4.11 10^6/uL (4.36-5.78); RDW 10.3 % (11.8-14.1); RDW-SD 36.1 fL; WBC 7.36 10^3/uL (4.4-10.8)
[2022-08-23 22:01] LABS: ALT 32 U/L (16-63); AST 34 U/L (15-37); Albumin 4.2 g/dL (3.4-5.0); Alkaline Phosphatase 62 U/L (46-116); Anion Gap 7.7 mmol/L (3-11); BUN 14 mg/dL (7-18); Bilirubin, Total 1.2 mg/dL (0.2-1.0); CO2 27.3 mmol/L (21.0-32.0); CREATININE 0.9 mg/dL (0.70-1.30); Calcium 9.4 mg/dL (8.5-10.1); Chloride 93 mmol/L (98-107); Estimated GFR 89.62 (mL/min/1.73m2); Glucose 96 mg/dL (74-106); Potassium 4.4 mmol/L (3.5-5.1); Sodium 128 mmol/L (136-145); TSH (W/Ref FT4) 1.22 uIU/mL (0.36-3.74); Total Protein 7.3 g/dL (6.4-8.2)
== END 2022-08-23 17:53 | disposition home or self-care (01) ==
LOC: NCHCN 17:52
PROVIDERS: PCP Family Medicine; Visit Provider Family Medicine
DX: R53.83 Other fatigue (principal)
CPT/HCPCS: 80053; 84443; 85025

== ENCOUNTER 2022-09-11 02:09 | Outpatient (CLI) | payer MEDICARE, OTHER, SELFPAY ==
--- NOTE | 2022-09-11 | DI.US_ITS ---
Exam(s) US SOFT TISSUE HEAD OR NECK EXAM: US SOFT TISSUE HEAD OR NECK CLINICAL HISTORY: SUBMANDIBULAR GLAND SWELLING R60.9. TECHNIQUE: Ultrasound was performed using standard protocol. COMPARISON: US THYROID ULTRASOUND from 08/24/2015 FINDINGS: Sonographic assessment utilizing grayscale and color Doppler imaging was performed and targeted to th e area of clinical concern. Both submandibular glands exhibit size without surrounding fluid and no obvious hyperechoic calculi s een within the gland substance on either side. In the right side the patient claims that the pea-sized waxing and waning nodule that feels is slight ly medial to the submandibular gland and at this location there is a 10 x 7 millimeter lymph node not ed. However, scanning the opposite side revealed a similar size lymph node at the exact same locatio n on the opposite side. We scanned both carotid-jugular chains and did not find adenopathy on either side of the neck in the jugular chains. IMPRESSION: Medial to the right submandibular gland there is 10 x 7 millimeter lymph node the findings similar fi nding on the opposite-left side. Which exactly corresponds to what this patient is feeling and what he describes as a waxing and waning pea-sized nodule. However, Both submandibular glands exhibit upper normal sized. They do not appear to contain calculi. Appropriate follow-up would be repeat ultrasound in [address] scan or MRI DATA REPOSITORY:
== END 2022-09-11 02:29 ==
LOC: DI 02:09
PROVIDERS: PCP Family Medicine; Visit Provider Otolaryngology Otolaryngology/Facial Plastic Surgery
DX: R22.1 Localized swelling, mass and lump, neck (principal)
CPT/HCPCS: 76536

== ENCOUNTER 2022-11-26 15:24 | Outpatient (REF) | payer MEDICARE, OTHER, SELFPAY ==
[2022-11-26 21:33] LABS: Hemoglobin A1C < 4.5 % (<5.7)
[2022-11-27 18:45] LABS: PSA, Screening 1.7 ng/mL (<=6.5)
[2022-12-02 12:01] LABS: Testosterone, Free 14.4 ng/dL (3.08-11.3); Testosterone, Total 782 ng/dL (240-950)
== END 2022-11-26 15:25 | disposition home or self-care (01) ==
LOC: NCHCN 15:24
PROVIDERS: PCP Family Medicine; Visit Provider Family Medicine
DX: D64.9 Anemia, unspecified (principal); R03.0 Elevated blood-pressure reading, without diagnosis of hypertension; R59.1 Generalized enlarged lymph nodes; E87.1 Hypo-osmolality and hyponatremia; N40.0 Benign prostatic hyperplasia without lower urinary tract symptoms; Z12.5 Encounter for screening for malignant neoplasm of prostate; R53.83 Other fatigue; R79.89 Other specified abnormal findings of blood chemistry
CPT/HCPCS: 84153; 84402; 84403; 83036

== ENCOUNTER 2023-07-26 17:00 | Outpatient (REF) | payer MEDICARE, OTHER, SELFPAY ==
--- NOTE | 2023-07-26 14:30 | SKI_PTH ---
PATIENT: John Parson LOC: [facility] U#:[id number] AGE/SX: 77/M ROOM: RE07/26/[address]: Edmar Linares DO : 1945 BED: DIS: 07/26/2023 SPEC #: [id number] RECD: 07/29/23 11:37 STATUS: SOSA REQ #: [id number] LARY: 07/26/23 14:[address]: Edmar Linares DEPT: Surgical Specimen RECD BY: Katelyn Ball ENTERED: 07/29/23 11:38 SP TYPE: DANETTE OT DR: Pattie June Tissues: 1 - SKIN BIOPSY(SHAVE/PUNCH) Procedures: IMMUNOPEROXIDASE STAIN SKIN LEVEL 4 Comments: [id number]
== END 2023-07-26 17:01 | disposition home or self-care (01) ==
LOC: LBN 17:00
PROVIDERS: PCP Family Medicine; Visit Provider Otolaryngology Otolaryngology/Facial Plastic Surgery
DX: D03.59 Melanoma in situ of other part of trunk (principal)
CPT/HCPCS: 88305; 88361

== ENCOUNTER 2023-08-06 18:02 | Outpatient (REF) | payer MEDICARE, OTHER, SELFPAY ==
[2023-08-06 21:13] LABS: Abs Immature Grans 0.02 10^3/uL (0.0-0.06); Absolute Basophil Count 0.03 10^3/uL (0.0-0.2); Absolute Eosinophil Count 0.08 10^3/uL (0.0-0.7); Absolute Lymphocyte Count 1.19 10^3/uL (1.2-3.4); Absolute Monocyte Count 0.41 10^3/uL (0.1-0.8); Absolute Neutrophil Count 4.55 10^3/uL (1.2-6.7); Basophils % 0.5; Eosinophils % 1.3; HCT 38.5 % (40.0-50.0); HGB 13.5 g/dL (13.5-17.5); Immature Grans % 0.3; Lymphocytes % 18.9; MCH 33.5 pg (27.0-33.0); MCHC 35.1 % (32.0-36.0); MCV 96 fL (80-95); MPV 9.2 fL (8.0-11.0); Monocytes % 6.5; Neutrophils % 72.5; Platelet Count 301 10^3/uL (130-400); RBC 4.03 10^6/uL (4.36-5.78); RDW-SD 39.2 fL; WBC 6.28 10^3/uL (4.4-10.8)
[2023-08-06 21:31] LABS: ALT 35 U/L (16-63); AST 29 U/L (15-37); Albumin 4.1 g/dL (3.4-5.0); Alkaline Phosphatase 60 U/L (46-116); Anion Gap 7.8 mmol/L (3-11); BUN 15 mg/dL (7-18); Bilirubin, Total 1.3 mg/dL (0.2-1.0); CO2 29.2 mmol/L (21.0-32.0); CREATININE 0.7 mg/dL (0.70-1.30); Calculated LDL 94 mg/dL (<100); Chloride 93 mmol/L (98-107); Cholesterol 183 mg/dL (<200); Estimated GFR 96.09 (mL/min/1.73m2); Glucose 79 mg/dL (74-106); HDL Cholesterol 83 mg/dL (40-60); Potassium 4.7 mmol/L (3.5-5.1); Sodium 130 mmol/L (136-145); TSH 1.39 uIU/mL (0.36-3.74); Total Protein 6.7 g/dL (6.4-8.2); Triglyceride 34 mg/dL (<150)
== END 2023-08-06 18:03 | disposition home or self-care (01) ==
LOC: NCHCN 18:02
PROVIDERS: PCP Family Medicine; Visit Provider Family Medicine
DX: Z00.00 Encounter for general adult medical examination without abnormal findings (principal)
CPT/HCPCS: 80053; 80061; 82306; 84443; 85025

== ENCOUNTER → 2024-01-13 13:24 | Outpatient (BNVA) | payer MEDICARE, OTHER, SELFPAY | PROVIDERS: PCP Family Medicine; Referring Provider Family Medicine; Visit Provider Surgery | DX: D64.9 Anemia, unspecified (principal); N40.0 Benign prostatic hyperplasia without lower urinary tract symptoms | CPT/HCPCS: 99204 ==

== ENCOUNTER 2024-01-14 05:50 | Outpatient (CLI) | payer MEDICARE, OTHER, SELFPAY ==
[2024-01-14 14:23] LABS: Abs Immature Grans 0.02 10^3/uL (0.0-0.06); Absolute Basophil Count 0.03 10^3/uL (0.0-0.2); Absolute Eosinophil Count 0.04 10^3/uL (0.0-0.7); Absolute Lymphocyte Count 1.04 10^3/uL (1.2-3.4); Absolute Monocyte Count 0.45 10^3/uL (0.1-0.8); Absolute Neutrophil Count 4.74 10^3/uL (1.2-6.7); Basophils % 0.5 %; Eosinophils % 0.6 %; HCT 37.4 % (40.0-50.0); Immature Grans % 0.3 %; Lymphocytes % 16.5 %; MCH 33.4 pg (27.0-33.0); MCHC 34.8 % (32.0-36.0); MCV 96 fL (80-95); MPV 8.4 fL (8.0-11.0); Monocytes % 7.1 %; Platelet Count 284 10^3/uL (130-400); RBC 3.89 10^6/uL (4.36-5.78); RDW 10.6 % (11.8-14.1); RDW-SD 37.5 fL; Reticulocyte 3.6 % (0.5-2.4); WBC 6.32 10^3/uL (4.4-10.8)
[2024-01-14 15:53] LABS: Iron 122 ug/dL (65-175); Total Iron Binding Capacity 317 ug/dL (250-450); Transferrin Sat 38 % (20-55)
[2024-01-14 16:21] LABS: Ferritin 195 ng/mL (26-388); Vitamin B12 468 pg/mL (193-986)
[2024-01-14 16:26] LABS: Folate > 20.0 ng/mL (8.6-20.0)
== END 2024-01-14 05:51 | disposition home or self-care (01) ==
LOC: LBO 05:50
PROVIDERS: PCP Family Medicine; Visit Provider Surgery
DX: D64.9 Anemia, unspecified (principal); N40.0 Benign prostatic hyperplasia without lower urinary tract symptoms
CPT/HCPCS: 36415; 82607; 82728; 82746; 83540; 83550; 85025; 85045

== ENCOUNTER 2024-07-23 01:04 | Outpatient (CLI) | payer MEDICARE, OTHER, SELFPAY ==
--- NOTE | 2024-07-23 | DI.MRI_ITS ---
Exam(s) MR LUMBAR SPINE WO EXAM: MR LUMBAR SPINE WO CLINICAL HISTORY: PAIN RT LEG M79.604 LOW BACK PAIN M54.50. TECHNIQUE: Multiplanar multisequence MRI of the Lumbar spine was performed. COMPARISON: CR LUMBAR SPINE AP, LAT from 05/02/2011 The FINDINGS: Bones: The last intervertebral disc space is designated the L5/S1 level for the numbering purpose of this ex amination. The vertebral body heights are well maintained. Alignment: Unremarkable. The marrow signal characteristics are unremarkable. Cord: The conus tip ends at the T12 level. It is of normal size and signal intensity. T12-L1: Loss of disc height. Endplate osteophytes projecting anteriorly. No focal disc herniation i s present. No central spinal canal stenosis.No neural foraminal stenosis. L1-2:Loss of disc height. Endplate osteophytes projecting anteriorly. No focal disc herniation is p resent. No central spinal canal stenosis.No neural foraminal stenosis. L2-3:Loss of disc height. Endplate osteophytes projecting anteriorly. Small osteophytes projecting posteriorly and mild disc bulging. Facet degenerative changes. No focal disc herniation is present. Mild central spinal canal stenosis.Mild bilateral foraminal stenosis. L3-4: Mild concentric disc bulging. Facet degenerative changes. No focal disc herniation is present . Mild central spinal canal stenosis.Mild bilateral neural foraminal stenosis. L4-5:Small endplate osteophytes and mild disc bulging. Facet degenerative changes and ligamentous hy pertrophy. Soft tissue density material is noted in the right neural foramen and causing nerve root compression. No central spinal canal stenosis.Severe right foraminal stenosis. L5-S1: Loss of disc height. Prominent osteophytes projecting anteriorly. Mild disc bulging.No focal disc herniation is present. No central spinal canal stenosis.No neural foraminal stenosis. The visualized SI joints and sacrum are unremarkable. Soft tissues: The paraspinal soft tissues are unremarkable. Bilateral renal cysts. No follow-up rec ommended. IMPRESSION: Large right foraminal disc herniation at L4-5 causing nerve root compression. Multilevel degenerative disc changes. Mild central canal stenosis at L2-3 and L3-4. DATA REPOSITORY:
== END 2024-07-23 01:24 ==
LOC: DI 01:05
PROVIDERS: PCP Family Medicine; Visit Provider Family Medicine
DX: M51.26 Other intervertebral disc displacement, lumbar region (principal); M48.02 Spinal stenosis, cervical region
CPT/HCPCS: 72148

== ENCOUNTER 2024-11-11 20:30 | Outpatient (REF) | payer MEDICARE, OTHER, SELFPAY ==
[2024-11-11 21:43] LABS: COMMENT (LAB VIEW ONLY) 41.48 mg/dL; Microalb ug/mg Crea 13.7 ug/mg Cr
== END 2024-11-11 20:31 | disposition home or self-care (01) ==
LOC: NCHCN 20:30
PROVIDERS: PCP Family Medicine; Visit Provider Family Medicine
DX: I10 Essential (primary) hypertension (principal)
CPT/HCPCS: 82043; 82570

== ENCOUNTER 2025-05-17 16:24 | Outpatient (REF) | payer MEDICARE, OTHER, SELFPAY ==
[2025-05-18 18:59] LABS: PSA, Diagnostic 1.5 ng/mL (<=6.5)
== END 2025-05-17 16:25 | disposition home or self-care (01) ==
LOC: NCHCN 16:24
PROVIDERS: PCP Family Medicine; Visit Provider Family Medicine
DX: R39.9 Unspecified symptoms and signs involving the genitourinary system (principal)
CPT/HCPCS: 84153; 87086

== ENCOUNTER 2025-06-02 17:48 | Outpatient (REF) | payer MEDICARE, OTHER, SELFPAY ==
[2025-06-02 21:35] LABS: HCT 38.8 % (40.0-50.0); HGB 13.7 g/dL (13.5-17.5); MCH 34.2 pg (27.0-33.0); MCHC 35.3 % (32.0-36.0); MCV 97 fL (80-95); MPV 9.0 fL (8.0-11.0); Platelet Count 339 10^3/uL (130-400); RBC 4.01 10^6/uL (4.36-5.78); RDW 10.4 % (11.8-14.1); RDW-SD 37.0 fL; WBC 5.44 10^3/uL (4.4-10.8)
[2025-06-02 21:41] LABS: ESR 3 mm/hr (0-20)
[2025-06-02 21:54] LABS: ALT 45 U/L (16-63); AST 38 U/L (15-37); Albumin 4.3 g/dL (3.4-5.0); Alkaline Phosphatase 70 U/L (46-116); Anion Gap 8.6 mmol/L (3-11); BUN 12 mg/dL (7-18); Bilirubin, Total 1.2 mg/dL (0.2-1.0); CO2 29.4 mmol/L (21.0-32.0); Calcium 9.6 mg/dL (8.5-10.1); Chloride 91 mmol/L (98-107); Cholesterol 179 mg/dL (<200); Estimated GFR 99.42 (mL/min/1.73m2); Glucose 88 mg/dL (74-106); HDL Cholesterol 84 mg/dL (>or=40); Potassium 4.1 mmol/L (3.5-5.1); Sodium 129 mmol/L (136-145); Total Protein 6.8 g/dL (6.4-8.2)
[2025-06-02 22:06] LABS: Triglyceride <25 mg/dL (<150)
[2025-06-02 22:17] LABS: LDL CHOLESTEROL 88 mg/dL (<100)
[2025-06-03 17:54] LABS: CRP, High Sensitivity 0.38 mg/L (See Note)
== END 2025-06-02 17:49 | disposition home or self-care (01) ==
LOC: NCHCN 17:48
PROVIDERS: PCP Family Medicine; Visit Provider Family Medicine
DX: Z00.00 Encounter for general adult medical examination without abnormal findings (principal)
CPT/HCPCS: 80053; 80061; 83721; 85027; 85652; 86141

== ENCOUNTER 2025-06-23 00:09 | Outpatient (CLI) | payer MEDICARE, OTHER, SELFPAY ==
--- NOTE | 2025-06-23 | DI.MRI_ITS ---
Exam(s) MR BRAIN WO EXAM: MR BRAIN WO CLINICAL HISTORY: FLUCTUATING MENTAL STATUS, R41.82 TECHNIQUE: Multiplanar multisequence MRI of the brain was performed. COMPARISON: CT HEAD FACIALS WO from 05/14/2017 FINDINGS: VENTRICLES AND EXTRA AXIAL SPACES: Normal in size and morphology for the patient's age. MIDLINE SHIFT: None. CEREBRAL PARENCHYMA: No focus of restricted diffusion to suggest acute infarct. No space-occupying lesion identified. Mild atrophy consistent with the patient's age. There are few scattered tiny foci of high signal in the white matter consistent with sequela of chronic microvascular disease. BRAINSTEM/CEREBELLUM: Normal. VISUALIZED PARANASAL SINUSES: Clear. MASTOIDS:Clear. Vasculature: Normal flow void. PITUITARY GLAND: Unremarkable. ORBITS: Unremarkable. IMPRESSION: Senescent changes. No acute abnormality. DATA REPOSITORY:
== END 2025-06-23 00:29 ==
LOC: DI 00:09
PROVIDERS: PCP Family Medicine; Visit Provider Family Medicine
DX: R41.82 Altered mental status, unspecified (principal)
CPT/HCPCS: 70551